=== PATIENT | female | born 1940 | race Caucasian/White ===

== ENCOUNTER → 2017-04-11 | Outpatient (CLI) | payer MEDICARE ==
--- NOTE | 2017-04-11 11:45 | US ---
EXAMINATION TYPE: US thyroid st tissue head/neck DATE OF EXAM: 04/11/2017 COMPARISON: NONE CLINICAL HISTORY: Thryoid Cystic Nodule E04.1. Thyroid nodule, patient on thyroid meds, left lobe rem mariza GLAND SIZE: Right Lobe: 4.7 x 1.6 x 1.6 cm Overall Parenchyma: heterogenous Left Lobe: surgically absent Isthmus Thickness: 0.4 cm NODULES RIGHT: # of nodules measured on right: 3 1. 0.6 X 0.4 x 0.6 cm hypoechoic mixed nodule at the upper pole with well-defined margins. This nod ule is wider than tall and shows no intranodular vascularity. Prior size: no previous 2. 0.8 X 0.8 x 0.5 cm hyperechoic solid nodule at the mid pole with well-defined margins. This nodul e is taller than wide and shows intranodular vascularity. Prior size: no previous 3. 1.0 X 0.8 x 0.9 cm hypoechoic solid nodule at the lower pole with well-defined margins, possible lower pole nodule vs. parathyroid inferior to thyroid. This nodule is wider than tall and shows no in tranodular vascularity. Prior size: no previous LEFT: surgically absent ISTHMUS: # of nodules measured in the isthmus: 0 Bilateral neck scanned, no evidence of lymphadenopathy. IMPRESSION: 1. Surgically absent left lobe with no evidence of recurrence. 2. Heterogeneity of the right thyroid lobe with stable nodules described above. The largest nodule ei ther is located within the inferior right lobe nodule vs. parathyroid nodule. Nuclear medicine parath yroid scan could be performed if clinically indicated.
== END | disposition home or self-care (01) ==
LOC: RADUSWWP 10:46
PROVIDERS: ATTEND Internal Medicine Geriatric Medicine
DX: E04.2 Nontoxic multinodular goiter (principal); Z90.89 Acquired absence of other organs
CPT/HCPCS: 76536

== ENCOUNTER → 2017-10-17 | Outpatient (CLI) | payer MEDICARE ==
--- NOTE | 2017-10-17 11:48 | US ---
EXAMINATION TYPE: US thyroid st tissue head/neck DATE OF EXAM: 10/17/2017 COMPARISON: US April 11, 2017 CLINICAL HISTORY: E04.1 THYROID NODULE. F/U, order states parathyroid as well GLAND SIZE: Right Lobe: 5.0 x 1.4 x 1.7 cm Overall Parenchyma: heterogenous Left Lobe: Surgically absent Isthmus Thickness: 0.4 cm NODULES RIGHT: # of nodules measured on right: 2 1. 0.8 X 0.8 x 0.7 cm isoechoic solid nodule at the mid pole with poorly defined margins; This nod ule is wider than tall and shows intranodular vascularity. Prior size: 0.8 x 0.8 x 0.5 cm 2. 1.2 X 0.9 x 1.2 cm hypoechoic solid nodule at the lower pole with poorly defined margins; This n odule is wider than tall and shows intranodular vascularity. Prior size: 1.0 x 0.8 x 0.9 cm Bilateral neck scanned, no evidence of lymphadenopathy. Nodules on right seen on previous, left thyro id surgically absent, No abnormality visualized within parathyroid areas. Heterogeneous right thyroid redemonstrated with stable 2 small nodules identified on current study. N o suspicious recurrent tissue identified at left thyroid bed. No new nodules are seen. IMPRESSION: As above
== END | disposition home or self-care (01) ==
LOC: RADUSWWP 10:43
PROVIDERS: ATTEND Internal Medicine Geriatric Medicine
DX: E04.2 Nontoxic multinodular goiter (principal)
CPT/HCPCS: 76536

== ENCOUNTER 2017-12-14 19:18 | Emergency (ER) | payer MEDICARE ==
[2017-12-14 21:21] VITALS: BP 160/73; PULSE 77; RESP 16; TEMP 98
--- NOTE | 2017-12-14 21:25 | ED ---
General Adult HPI - General Chief complaint: Fall Stated complaint: fall/ear lac-sent by [facility] Time Seen by Provider: 12/14/17 20:23 Source: patient, RN notes reviewed Mode of arrival: ambulatory Limitations: no limitations - History of Present Illness Initial comments: This is a 77-year-old female who presents to the emergency department with chief complaint of left ear laceration. Patient states earlier today she tripped and fell hitting her left ear on the corner of her dresser. She denies loss of consciousness, nausea or vomiting. She states that she presented to [facility] and they would not suture the ear. Patient denies any other injuries or trauma. Denies recent fevers or chills, chest pain or shortness breath, abdominal pain, nausea or vomiting, dizziness or headache. - Related Data Allergies Allergy/AdvReac Type Severity Reaction Status Date / Time amoxicillin Allergy Rash/Hives Verified 12/14/17 20:16 Sulfa (Sulfonamide Allergy Rash/Hives Verified 12/14/17 20:16 Antibiotics) Review of Systems ROS Statement: Those systems with pertinent positive or pertinent negative responses have been documented in the HPI. ROS Other: All systems not noted in ROS Statement are negative. Past Medical History Past Medical History: Cancer, Diabetes Mellitus, Hyperlipidemia, Hypertension, Thyroid Disorder History of Any Multi-Drug Resistant Organisms: None Reported Past Surgical History: Cholecystectomy, Hysterectomy, Joint Replacement Additional Past Surgical History / Comment(s): bilateral knee replace; vein stripping, bilateral masectomy; viatrectomy Past Psychological History: No Psychological Hx Reported Smoking Status: Never smoker Past Alcohol Use History: None Reported Past Drug Use History: None Reported General Exam - General Exam Comments Initial Comments: General: Awake and alert, well-developed; in no apparent distress. HEENT: Head atraumatic, normocephalic. Pupils are equal, round and reactive to light. Extraocular movements intact. Oropharynx moist without erythema or exudate. There is an approximately 3.0 cm laceration from the tip of the auricle extending down to the anna. Bleeding is controlled. Neck: Supple. Normal ROM. Cardiovascular: Regular rate and rhythm. No murmurs, rubs or gallops. Chest symmetrical. Respiratory: Lungs clear to auscultation bilaterally. No wheezes, rales or rhonchi. Normal respiratory effort with no use of accessory muscles. Musculoskeletal: Normal ROM, no tenderness bilateral upper and lower extremities. Ambulating normally. Skin: [place], warm and dry. Neurological: Alert and oriented x3. CN II-XII grossly intact. Speech is fluent and answers are appropriate. No focal neuro deficits. Psychiatric: Normal mood and affect. No overt signs of depression or anxiety noted. Limitations: no limitations Course Vital Signs 12/14/17 12/14/17 20:10 21:18 Temperature 97.6 F 98 F Pulse Rate 72 77 Respiratory 15 16 Rate Blood Pressure 164/69 160/73 O2 Sat by Pulse 97 98 Oximetry Procedures - Laceration Laceration #1 Consent Obtained: verbal consent Indication: laceration Site: other (left ear ) Size (cm): 3 Description: linear Depth: simple, single layer Anesthetic Used: lidocaine 1% Anesthesia Technique: local infiltration Amount (mls): 8 Pre-repair: wound explored, irrigated extensively, deep structures intact Type of Sutures: nylon (6-0), vicryl (5-0) Size of Sutures: 5-0, 6-0 Number of Sutures: 8 Technique: simple, interrupted Patient Tolerated Procedure: well, no complications Medical Decision Making - Medical Decision Making This is a 77-year-old female who presents to the emergency department with chief complaint of left ear laceration. There is a laceration that extends from the tip of the auricle down to the anna of the left ear. It does appear that a small amount of cartilage is lacerated at the tip of the ear. An absorbable suture was placed here and all others were nylon sutures through the skin. She tolerated well without complication. Patient was updated with her tetanus vaccination. She is to follow up with ABRAHAN Sheldon. Patient's vital signs are stable and she is in no acute distress. She will be discharged home at this time. Patient is in agreement with plan and voices understanding. All questions were answered. Disposition Clinical Impression: Laceration of ear Disposition: HOME SELF-CARE Condition: Good Instructions: Care For Your Absorbable Stitches (ED), Laceration (ED), Care For Your Stitches (ED) Additional Instructions: Please follow up with Dr. Wiley ENT within 1-2 days. Please follow up with primary care provider within 1-2 days. Return to emergency department if symptoms should worsen or any concerns arise. Is patient prescribed a controlled substance at d/c from ED?: No Referrals: Toni Hernandez MD [Primary Care Provider] - 1-2 days Frankie Wiley MD [STAFF PHYSICIAN] - 1-2 days Time of Disposition: 22:09
[2017-12-14] MEDS ORDERED: DIPH,PERTUS(ACELL)TETVAC-LF 0.5 ML VIAL IM ONE (21:46)
== END 2017-12-14 22:34 | disposition home or self-care (01) ==
LOC: EC 19:18
DX: S01.312A Laceration without foreign body of left ear, initial encounter (principal); Z23 Encounter for immunization; Z85.9 Personal history of malignant neoplasm, unspecified; Z96.653 Presence of artificial knee joint, bilateral; Z88.0 Allergy status to penicillin; Z88.2 Allergy status to sulfonamides; W01.198A Fall on same level from slipping, tripping and stumbling with subsequent striking against other object, initial encounter
CPT/HCPCS: 12013; 90471; 90715; 99283

== ENCOUNTER → 2018-01-02 | Outpatient (CLI) | payer MEDICARE ==
--- NOTE | 2018-01-03 14:52 | BD ---
EXAMINATION TYPE: Axial Bone Density DATE OF EXAM: 01/02/2018 COMPARISON: 2001 CLINICAL HISTORY: post menopausal Height: 5'2 1/2 Weight: 198 FRAX RISK QUESTIONS: History of Fracture in Adulthood: y Secondary Osteoporosis: RISK FACTORS HISTORY OF: Active: n Postmenopausal woman: Lost more than 2 inches in height since high school: y Frequent falls: y MEDICATIONS: Thyroid Medications: Which medication: Levothyroxine How Lon years Additional Medications: blood pressure, cholesterol, vitamin d , diabetes 2,arthritis Additional History: mireya mastectomy 2018 EXAM MEASUREMENTS: Bone mineral densitometry was performed using the [employer] System. Bone mineral density as measured about the Lumbar spine is: ----- L1-L4(G/cm2): 1.463 T Score Values are as follows: ----- L2: 1.6 ----- L3: 3.6 ----- L4: 3.2 ----- L1-L4:2.4 Bone mineral density has: Increased 17.3% since study of: 03/13/2002 Bone mineral density about the R hip (g/cm2): 1.158 Bone mineral density about the L hip (g/cm2): 1.054 T Score values are as follows: -----R Neck: 0.9 -----L Neck: 0.1 -----R Total: 0.5 -----L Total: 0.5 Bone mineral density has: Increased 4.8% since study of: 03/13/2002 IMPRESSION: Normal (Values between +1 and -1 indicate normal bone mass). Consider repeating this study in 5 year s or sooner if there is some new clinical indication. NOTE: T-SCORE=SD OF THE YOUNG ADULT MEAN.
== END | disposition home or self-care (01) ==
LOC: RADBDWWP 16:27
PROVIDERS: ATTEND Internal Medicine Hematology & Oncology
DX: C50.111 Malignant neoplasm of central portion of right female breast (principal); Z78.0 Asymptomatic menopausal state; Z88.2 Allergy status to sulfonamides
CPT/HCPCS: 77080

== ENCOUNTER → 2020-02-27 | Outpatient (CLI) | payer MEDICARE ==
--- NOTE | 2020-02-27 18:59 | BD ---
EXAMINATION TYPE: Axial Bone Density DATE OF EXAM: 02/27/2020 COMPARISON: 01.02.2018 CLINICAL HISTORY: 79 YR OLD FEMALE....ICD-10 CODE: C50.111 MALIGNANT NEOPLASM, Z79.890 Height: 62.3 Weight: 180 FRAX RISK QUESTIONS: History of Fracture in Adulthood: YES Secondary Osteoporosis: YES 3. Menopause before 45: YES AT AGE 32 RISK FACTORS HISTORY OF: HX OF RT SHOULDER BREAK AN ADULT Postmenopausal woman: TOTAL HYST AT AGE 32 Take estrogen and/or progesterone medications: NONE IN THE PAST, AND LETROZOLE NOW Lost more than 2 inches in height since high school: YES Frequent falls: YES, UNSTEADY Hyperparathyroidism: NO Adrenal Insufficiency: NO MEDICATIONS: Thyroid Medications: YES, SYNTHROID FOR ABOUT 15 YRS NOW Additional Medications: DIABETIC, BP MEDS, CHOLESTEROL MEDS, VIT D, METFORMIN, MELOXICAM FOR ARTHRITI S, FLUOXITINE, STATIN FOR CHOLESTEROL, Additional History: HX OF RT BREAST CANCER, BILAT MASTECTOMY, EXAM MEASUREMENTS: Bone mineral densitometry was performed using the [employer] System. Bone mineral density as measured about the Lumbar spine is: ----- L1-L4(G/cm2): 1.470 T Score Values are as follows: ----- L1: 1.6 ----- L2: 3.4 ----- L3: 4.2 ----- L4: 3.6 ----- L1-L4: 3.3 Bone mineral density has: Increased 7.3% since study of: 01.02.2018 Bone mineral density about the R hip (g/cm2): 1.052 Bone mineral density about the L hip (g/cm2): 0.988 T Score values are as follows: -----R Neck: 0.9 -----L Neck: -0.5 -----R Total: 0.3 -----L Total: -0.2 Bone mineral density has: Decreased -4.9% since study of: 01.02.2018 FRAX%s: THERE IS A 13.4% CHANCE FOR A MAJOR OSTEOPOROTIC FX AND A 1.6% FOR HIP....PROBABILITY FOR F X IN 10 YRS TIME IMPRESSION: No evidence for osteoporosis or osteopenia. NOTE: T-SCORE=SD OF THE YOUNG ADULT MEAN.
== END | disposition home or self-care (01) ==
LOC: RADBDWWP 08:31
PROVIDERS: ATTEND Internal Medicine Hematology & Oncology
DX: N95.1 Menopausal and female climacteric states (principal); C50.111 Malignant neoplasm of central portion of right female breast; Z79.890 Hormone replacement therapy
CPT/HCPCS: 77080

== ENCOUNTER → 2021-08-12 | Outpatient (CLI) | payer MEDICARE ==
--- NOTE | 2021-08-13 05:29 | MR ---
EXAMINATION TYPE: MR shoulder LT wo con DATE OF EXAM: 08/12/2021 COMPARISON: None HISTORY: Lt shoulder soreness and some shooting pain due to fall 4 or 5 months ago Multiplanar multiecho imaging of the left shoulder without contrast. There is a moderate shoulder joint effusion. There is some increased signal in the biceps tendon cons istent with partial tear. The glenoid jayy appear intact. There is some thickening and increased sig nal in the supraspinatus tendon. There is subacromial and subdeltoid effusion. There is retraction of the supraspinatus tendon. There is large defect in the supraspinatus tendon over the superior aspect of the humeral head. There is no evidence of a fracture. Proximal humerus is intact. IMPRESSION: Large rotator cuff tear with retraction of the supraspinatus tendon. There is partial tear of the sub scapularis tendon. Large shoulder joint effusion and subdeltoid effusion consistent with some synovitis. Mild subacromia l joint space narrowing. There is at least partial tear of the biceps tendon.
== END | disposition home or self-care (01) ==
LOC: RADMRIMAIN 21:32
PROVIDERS: ATTEND Orthopaedic Surgery
DX: M75.102 Unspecified rotator cuff tear or rupture of left shoulder, not specified as traumatic (principal); M25.412 Effusion, left shoulder

== ENCOUNTER 2021-10-07 05:45 | Observation (INO) | payer MEDICARE ==
[2021-10-06 10:59] VITALS: BMI 28.3
--- NOTE | 2021-10-06 12:54 | HP ---
HISTORY AND PHYSICAL DATE OF SURGERY: 10/07/2021 Irene Turcios is a 81-year-old patient seen with progressive left shoulder pain. We discussed options for treatment. She elected to proceed with left shoulder arthroscopy. Consent was obtained. Clearance was provided by Dr. Hernandez. PAST MEDICAL HISTORY: Hypertension, hyperlipidemia, ddx-rrylinq-wmtnunzeq diabetes, hypothyroidism. PAST SURGICAL HISTORY: Bilateral mastectomy, right shoulder surgery, hysterectomy, eye surgery. DAILY MEDICATIONS: Simvastatin, metformin, meloxicam, levothyroxine. ALLERGIES: SULFA. SOCIAL HISTORY: She denies tobacco use. PHYSICAL EVALUATION OF THE LEFT SHOULDER: Flexion is 110 degrees, abduction is 80 degrees. External rotation is 30 degrees with pain and weakness. Tenderness along the anterolateral acromion and rotator cuff insertion. Impingement positive at 80 degrees. Drop-arm sign is positive. Distal neurovascular exam is intact. Radiographs of the left shoulder revealed a type 2 acromion, evidence for acromioclavicular joint osteoarthritis and cystic changes of the tuberosity. MRI left shoulder: Large rotator cuff tendon tear. IMPRESSION: 1. Left shoulder impingement with rotator cuff tear. 2. Left shoulder acromioclavicular joint osteoarthritis. 3. Hypothyroidism. 4. Hyperlipidemia. 5. Lpc-jectrqj-tnkczpvke diabetes. PLAN: Left shoulder arthroscopy with subacromial decompression, arthroscopic rotator cuff repair, Evita procedure and debridement. MMODL / IJN: [id number] /
[2021-10-07] MEDS ORDERED: ONDANSETRON 4 MG/2 ML VIAL IVP ONE (06:08)
[2021-10-07] MEDS ORDERED: LACTATED RINGERS 1,000 ML IV SCH (06:08)
[2021-10-07] MEDS ORDERED: LIDOCAINE 1% (10MG/ML) FOR IV START INTRADERMA PRN (06:08)
[2021-10-07 06:44] LABS: Glucose,Whole Blood 125 mg/dL (75-99)
[2021-10-07 06:45] VITALS: TEMP 98.4
[2021-10-07] MEDS ORDERED: HYDROmorphone 0.5 MG/0.5 ML SYRINGE IVP PRN (07:00)
[2021-10-07] MEDS ORDERED: IV FLUID CONTINUATION 1,000 ML IV ONE (07:34)
[2021-10-07 07:35] VITALS: RESP 16
--- NOTE | 2021-10-07 08:39 | P.CRDCN ---
History of Present Illness Consult date: 10/07/21 History of present illness: History of Present Illness: The patient is a 81-year-old female who was admitted to undergo shoulder surgery. Cardiology consultation was requested because of atrial fibrillation. She has a known history of hypertension, hyperlipidemia and diabetes mellitus. She has no prior history of atrial fibrillation. She was seen at Dr. Hernandez's office preoperatively and she was in sinus mechanism. She does not feel the palpitations. She denies any dizziness or syncope. She has no significant peripheral edema, no PND, orthopnea. In 2018 she had a normal systolic function by echocardiography and her stress test in 2018 showed no evidence of inducible ischemia. Her risk factors are positive for the hypertension number hyperlipidemia and diabetes. She is in atrial fibrillation with rapid ventricular response but denies any change in her symptoms. Her activity is limited but unchanged. Her medication at home include metformin, simvastatin, Benicar 4012-1/2, levothyroxin, aspirin Review of Systems: Respiratory: [No history of asthma, bronchitis or recent cough.] GI: [She had nausea and vomiting today. No history of peptic ulcer disease. No recent GI bleed.] : [No hematuria or dysuria.] Nervous System: [No stroke or seizure.] Physical Examination: She is a 81-year-old female, alert and oriented no apparent distress. Heart rate in the 120s, irregular, blood pressure 120/70 Head: [Normocephalic.] Eyes: [Sclerae nonicteric.] Neck: [Good carotid upstroke, no bruit, no jugular venous distention.] Lungs: [Clear to auscultation.] Heart: [Irregular rate and rhythm, S1-S2, no S3, no rub. Systolic ejection murmur at the base 2/6 Abdomen: [Soft nontender, positive bowel sounds no organomegaly.] Extremities: [No edema, intact distal pulses.] Labs: EKG shows atrial fibrillation with rapid ventricle response and nonspecific ST-T wave changes Impression: 1. Atrial fibrillation appears to be paroxysmal, asymptomatic with rapid ventricular response. Her CHADS2-VASC2 score is 5 2. Shoulder discomfort, scheduled for surgery 3. History of hypertension 4. History of diabetes 5. History of hyperlipidemia Plan: 1. Initiate anticoagulation 2. Add oral beta kenan to slow ventricular response 3. Obtain an echocardiogram with Doppler 4. If needed add IV Cardizem 5. Cancel surgery for now 6. Depending on the results of her testing further recommendations will be made. I discussed those findings and recommendations with the patient and her family. Thank you for this consult we will follow with you. 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" History of Any Multi-Drug Resistant Organisms: None Reported Past Surgical History: Section, Cholecystectomy, Hysterectomy, Joint Replacement Additional Past Surgical History / Comment(s): bilateral knee replacement ; vein stripping, bilateral masectomy; viatrectomy, c section x2 Past Anesthesia/Blood Transfusion Reactions: No Reported Reaction Smoking Status: Former smoker - Past Family History Mother Family Medical History: No Reported History Medications and Allergies Home Medications Medication Instructions Recorded Confirmed Type Acetaminophen Tab [Tylenol Tab] 1,000 mg PO Q6HR PRN 10/06/21 10/07/21 History Aspirin 81 mg PO DAILY 10/06/21 10/07/21 History Cholecalciferol [Vitamin D3 (25 25 mcg PO DAILY 10/06/21 10/07/21 History Mcg = 1000 Iu)] Cranberry Conc/C/Bacill Coag 1 each PO DAILY 10/06/21 10/07/21 History [Cranberry Urinary 250-30-3.5MG] FLUoxetine HCL [PROzac] 20 mg PO DAILY 10/06/21 10/07/21 History Letrozole [Femara] 2.5 mg PO DAILY 10/06/21 10/07/21 History Levothyroxine Sodium [Synthroid] 50 mcg PO DAILY 10/06/21 10/07/21 History Meloxicam [Mobic] 15 mg PO DAILY 10/06/21 10/07/21 History Olmesartan/Hydrochlorothiazide 1 each PO DAILY 10/06/21 10/07/21 History [Olmesartan-Hctz 40-12.5 mg Tab] Simvastatin [Zocor] 10 mg PO HS 10/06/21 10/07/21 History metFORMIN HCL [Glucophage] 500 mg PO BID 10/06/21 10/07/21 History Allergies Allergy/AdvReac Type Severity Reaction Status Date / Time amoxicillin Allergy Rash/Hives Verified 10/07/21 06:22 Sulfa (Sulfonamide Allergy Rash/Hives Verified 10/07/21 06:22 Antibiotics) Physical Exam Vitals: Vital Signs Temp Pulse Resp BP Pulse Ox 10/07/21 08:10 132 H 16 142/91 97 10/07/21 07:26 107 H 16 162/96 0 L 10/07/21 06:33 98.4 F 127 H 20 137/91 99 Intake and Output 10/06/21 10/07/21 10/07/21 22:59 06:59 14:59 Other: Weight 76.5 kg Results Current Medications Generic Name Dose Route Start Last Admin Trade Name Freq PRN Reason Stop Dose Admin Hydromorphone HCl 0.5 mg 10/07/21 07:00 Hydromorphone 0.5 Mg/0.5 Ml Syringe IVP 10/07/21 23:00 Q5M PRN Phase I - Pain Control Cefazolin Sodium 2 gm/ Sodium 50 mls @ 100 mls/hr 10/07/21 05:00 Chloride IVPB 10/08/21 00:01 ONCE PRN pre-op Lactated Ringer's 1,000 mls @ 20 mls/hr 10/07/21 06:08 10/07/21 06:56 Lactated Ringers IV 11/06/21 06:09 0 mls .Q24H MOHIT Administration Lidocaine HCl 0.1 ml 10/07/21 06:08 Lidocaine 1% (10mg/Ml) For Iv Start INTRADERMA 11/06/21 06:09 PER PROTOCOL PRN IV Start Intake and Output 10/06/21 10/07/21 10/07/21 22:59 06:59 14:59 Other: Weight 76.5 kg
[2021-10-07] MEDS ORDERED: METOPROLOL TARTRATE 50 MG TAB PO SCH (09:00)
[2021-10-07] MEDS ORDERED: ATORVASTATIN 40 MG TAB PO SCH (09:00)
[2021-10-07] MEDS ORDERED: APIXABAN 5 MG TAB PO SCH (09:00)
[2021-10-07] MEDS ORDERED: ACETAMINOPHEN TAB 325 MG TAB ONE (10:30)
[2021-10-07] MEDS ORDERED: ACETAMINOPHEN TAB 325 MG TAB PO ONE (10:32)
[2021-10-07 10:42] LABS: ALT 12 U/L (4-34); AST 17 U/L (14-36); African American GFR (CKD) >90 (>60 ml/min/1.73 sqM); Albumin 3.9 g/dL (3.5-5.0); Alkaline Phosphatase 66 U/L (38-126); Anion Gap 8 mmol/L; Blood Urea Nitrogen 12 mg/dL (7-17); Calcium 9.7 mg/dL (8.4-10.2); Carbon Dioxide 30 mmol/L (22-30); Chloride 100 mmol/L (98-107); Glucose 132 mg/dL (74-99); Non-African American GFR(CKD) 89 (>60 ml/min/1.73 sqM); Potassium 3.5 mmol/L (3.5-5.1); Sodium 138 mmol/L (137-145); Total Bilirubin 0.8 mg/dL (0.2-1.3); Total Protein 6.7 g/dL (6.3-8.2)
--- NOTE | 2021-10-07 11:00 | ECHOF ---
Referral Reason:afib MEASUREMENTS -------- HEIGHT: 162.6 cm WEIGHT: 76.2 kg BP: IVSd: 1.0 cm (0.6 - 1.1) LVIDd: 3.6 cm (3.9 - 5.3) LVPWd: 1.1 cm (0.6 - 1.1) IVSs: 1.2 cm LVIDs: 1.7 cm LVPWs: 1.3 cm LAESV Index (A-L): 49.26 ml/m Ao Diam: 3.1 cm (2.0 - 3.7) AV Cusp: 1.5 cm (1.5 - 2.6) LA Diam: 3.0 cm (2.7 - 3.8) MV EXCURSION: 13.536 mm (> 18.000) MV EF SLOPE: 113 mm/s (70 - 150) EPSS: 0.9 cm MV E Yayo: 1.26 m/s MV DecT: 227 ms MV A Yayo: 0.26 m/s MV E/A Ratio: 4.86 AV maxP.77 mmHg AV meanP.43 mmHg RAP: 5.00 mmHg RVSP: 47.82 mmHg FINDINGS -------- Sinus rhythm. This was a technically adequate study. The left ventricular size is normal. Left ventricular wall thickness is normal. Overall left vent ricular systolic function is normal with, an EF between 55 - 60 %. Increased LAP Grade 2 Diastolic Dysfunction. The right ventricle is normal in size. LA is severely dilated >40 ml/m2 The right atrial size is normal. There is mild aortic valve sclerosis. Peak/mean gradient across the Aortic Valve is 8.77mmHg / 5.43 mmHg. Moderate mitral annular calcification present. Igqb-xk-mivmcvjd mitral regurgitation is present. The tricuspid valve appears structurally normal. Hwmh-xw-aljiiixo tricuspid regurgitation present. There is mild pulmonary hypertension. The right ventricular systolic pressure, as measured by Dop pler, is 47.82mmHg. There is no pulmonic regurgitation present. The aortic root size is normal. Normal inferior vena cava with normal inspiratory collapse consistent with estimated right atrial pre ssure of 5 mmHg. There is no pericardial effusion. CONCLUSIONS -------- 1. Left ventricular wall thickness is normal. 2. Overall left ventricular systolic function is normal with, an EF between 55 - 60 %. 3. Increased LAP Grade 2 Diastolic Dysfunction. 4. LA is severely dilated >40 ml/m2 5. There is mild aortic valve sclerosis. 6. Peak/mean gradient across the Aortic Valve is 8.77mmHg / 5.43mmHg. 7. Ayst-li-grhjffdy tricuspid regurgitation present. 8. There is mild pulmonary hypertension. 9. There is no pericardial effusion. SQL SSIS DEVELOPER: Margarita Salazar RDCS
--- NOTE | 2021-10-07 11:17 | P.HPIM ---
History of Present Illness H&P Date: 10/07/21 HISTORY OF PRESENT ILLNESS This is a 81-year-old female patient of Dr. Hernandez with past medical history of diabetes mellitus type 2, hypothyroidism, hypertension, hyperlipidemia, generalized osteoarthritisl history of breast cancer status post double mastectomy. She denies any cardiac history, no history of myocardial infarction. Patient was brought in the hospital on the care of Dr. Ballesteros for left shoulder surgery and was found to be in atrial fibrillation with RVR. She denies having any history of atrial fibrillation, denies chest pain, palpitations, dizziness or lightheadedness. She states she does not feel the atrial fibrillation. EKG is atrial fibrillation with RVR nonspecific ST-T wave changes. Echocardiogram reveals EF of 55-60% with mild aortic valve sclerosis, [id number] tricuspid regurgitation, mild pulmonary hypertension. Blood work revealed normal electrolytes, creatinine 0.57. Liver function tests were normal. Patient is seen in the postop area, she has converted to sinus rhythm. Patient has been started on eliquis and Lopressor 50 g twice daily by cardiology. REVIEW OF SYSTEMS Constitutional: No fever, no chills, no night sweats. No weight change. No weakness, fatigue or lethargy. No daytime sleepiness. EENT: No headache. No blurred vision or double vision, no loss of vision. No loss of Hearing, no ringing in the ears, no dizziness. No nasal drainage or congestion. No epistaxis. No sore throat. Lungs: No shortness of breath, cough, no sputum production. No wheezing. Cardiovascular: No chest pain, no lower extremity edema. No palpitations. No paroxysmal nocturnal dyspnea. No orthopnea. No lightheadedness or dizziness. No syncopal episodes. Abdominal: No abdominal pain. No nausea, vomiting. No diarrhea. No constipation. No bloody or tarry stools. No loss of appetite. Genitourinary: No dysuria, increased frequency, urgency. No urinary retention. Musculoskeletal: No myalgias. No muscle weakness, no gait dysfunction, no frequent falls. No back pain. No neck pain. Integumentary: No wounds, no lesions. No rash or pruritus. No unusual bruising. No change in hair or nails. Neurologic: No aphasia. No facial droop. No change in mentation. No head injury. No headache. No paralysis. No paresthesia. Psychiatric: No depression. No anxiety. No mood swings. Endocrine: No abnormal blood sugars. No weight change. No excessive sweating or thirst. No cold intolerance. SOCIAL HISTORY She is a nonsmoker, rare alcohol use, she does drink diet Pepsi regularly. She does not require CPAP, nebulizer, oxygen, walker or cane.. FAMILY HISTORY Mother at age 42 from TB. Father at age 68 from endocarditis from tooth infection. Patient is one sister at age 80 with no major medical problems. Patient does not have any brothers. She has one son and one daughter with no major medical problems. PHYSICAL EXAMINATION Gen: This is a 81-year-old female. Is resting on the stretcher and appears to be in no acute distress. Patient's significant other is at bedside. HEENT: Head is atraumatic, normocephalic. Pupils equal, round. Sclerae is anicteric. NECK: Supple. No JVD. No lymphadenopathy. No thyromegaly. LUNGS: Clear to auscultation. No wheezes or rhonchi. No intercostal retractions. HEART: Regular rate and rhythm. Systolic ejection murmur. ABDOMEN: Soft. Bowel sounds are present. No masses. No tenderness. EXTREMITIES: No pedal edema. No calf tenderness. NEUROLOGICAL: Patient is awake, alert and oriented x3. Cranial nerves 2 through 12 are grossly intact. ASSESSMENT AND PLAN 1. A. fib with RVR, paroxysmal atrial fibrillation. Patient's been started on metoprolol 50 mg twice daily and eliquis 5 mg twice daily by cardiology. Patient has converted to sinus rhythm. 2. Left shoulder impingement/osteoarthritis. Surgery has been canceled and patient will follow-up with Dr. Ballesteros. 3. Diabetes mellitus type 2. Patient resumed on metformin 500 mg twice daily, consistent carb diet. 4. Hypothyroidism. Continue levothyroxine 50 g daily. Obtain TSH and free T4. 5. Hypertension. Patient's been started on metoprolol. Hold. 6. Hyperlipidemia. Continue Lipitor 40 mild grams daily. 7. Generalized osteoarthritis, stable. 8. History of breast cancer status post bilateral mastectomy. Continue Femara 2.5 mg daily. 9. Depression. Continue Prozac 20 mg daily. 10. GI prophylaxis. Protonix. 11. DVT prophylaxis. Eliquis. Patient will be admitted to the hospital for a minimum of 2 night stay. DISCHARGE PLAN Home on Tuesday. Impression and plan of care have been directed as dictated by the signing physician. Helga Francois nurse practitioner acting as scribe for signing physician. 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" History of Any Multi-Drug Resistant Organisms: None Reported Past Surgical History: Section, Cholecystectomy, Hysterectomy, Joint Replacement Additional Past Surgical History / Comment(s): bilateral knee replacement ; vein stripping, bilateral masectomy; viatrectomy, c section x2 Past Anesthesia/Blood Transfusion Reactions: No Reported Reaction Smoking Status: Former smoker - Past Family History Mother Family Medical History: No Reported History Medications and Allergies Home Medications Medication Instructions Recorded Confirmed Type Acetaminophen Tab [Tylenol Tab] 1,000 mg PO Q6HR PRN 10/06/21 10/07/21 History Aspirin 81 mg PO DAILY 10/06/21 10/07/21 History Cholecalciferol [Vitamin D3 (25 25 mcg PO DAILY 10/06/21 10/07/21 History Mcg = 1000 Iu)] Cranberry Conc/C/Bacill Coag 1 each PO DAILY 10/06/21 10/07/21 History [Cranberry Urinary 250-30-3.5MG] FLUoxetine HCL [PROzac] 20 mg PO DAILY 10/06/21 10/07/21 History Letrozole [Femara] 2.5 mg PO DAILY 10/06/21 10/07/21 History Levothyroxine Sodium [Synthroid] 50 mcg PO DAILY 10/06/21 10/07/21 History Meloxicam [Mobic] 15 mg PO DAILY 10/06/21 10/07/21 History Olmesartan/Hydrochlorothiazide 1 each PO DAILY 10/06/21 10/07/21 History [Olmesartan-Hctz 40-12.5 mg Tab] Simvastatin [Zocor] 10 mg PO HS 10/06/21 10/07/21 History metFORMIN HCL [Glucophage] 500 mg PO BID 10/06/21 10/07/21 History Apixaban [Eliquis] 5 mg PO BID 30 Days #60 tab 10/07/21 Rx Allergies Allergy/AdvReac Type Severity Reaction Status Date / Time amoxicillin Allergy Rash/Hives Verified 10/07/21 06:22 Sulfa (Sulfonamide Allergy Rash/Hives Verified 10/07/21 06:22 Antibiotics) Physical Exam Vitals: Vital Signs Temp Pulse Resp BP Pulse Ox 10/07/21 08:10 132 H 16 142/91 97 10/07/21 07:26 107 H 16 162/96 0 L 10/07/21 06:33 98.4 F 127 H 20 137/91 99 Intake and Output 10/06/21 10/07/21 10/07/21 22:59 06:59 14:59 Other: Weight 76.5 kg Results CBC & Chem 7: 10/07/21 09:53 Labs: Abnormal Lab Results - Last 24 Hours (Table) 10/07/21 Range/Units 06:43 POC Glucose (mg/dL) 125 H (75-99) mg/dL Thrombosis Risk Factor Assmnt - Choose All That Apply Each Factor Represents 1 point: Minor surgery planned, Obesity (BMI >25) Each Risk Factor Represents 2 Points: Malignancy Each Risk Factor Represents 3 Points: Age 75 years or older Thrombosis Risk Factor Assessment Total Risk Factor Score: 7 Thrombosis Risk Factor Assessment Level: High Risk
[2021-10-07 11:27] VITALS: BP 91/56; PULSE 61
[2021-10-07 12:05] LABS: Glucose,Whole Blood 152 mg/dL (75-99)
[2021-10-07 20:27] LABS: Chol/HDL Ratio 1.96 Ratio; LDL Cholesterol,Calculated 55.6 mg/dL (0.0-131.0)
[2021-10-07] MEDS ORDERED: metFORMIN 500 MG TAB PO SCH (21:00)
[2021-10-07] MEDS ORDERED: NON FORMULARY DRUG (Simvastatin 10 MG Tab) PO SCH (21:00)
[2021-10-08] MEDS ORDERED: FLUoxetine HCL 20 MG CAP PO SCH (09:00)
[2021-10-08] MEDS ORDERED: LEVOTHYROXINE 50 MCG TAB PO SCH (09:00)
[2021-10-08] MEDS ORDERED: LETROZOLE 2.5 MG TAB PO SCH (09:00)
== END 2021-10-07 15:54 | disposition home or self-care (01) ==
LOC: OR 05:45 → INTOOBSV 08:19 → 4SSUR 08:19 → UNDODISIN 15:54
PROVIDERS: ADMIT Orthopaedic Surgery; ATTEND Orthopaedic Surgery
DX: M75.42 Impingement syndrome of left shoulder (principal); I48.0 Paroxysmal atrial fibrillation; Z53.09 Procedure and treatment not carried out because of other contraindication; M75.102 Unspecified rotator cuff tear or rupture of left shoulder, not specified as traumatic; M19.012 Primary osteoarthritis, left shoulder; I10 Essential (primary) hypertension; E03.9 Hypothyroidism, unspecified; E78.5 Hyperlipidemia, unspecified; E11.9 Type 2 diabetes mellitus without complications; I27.20 Pulmonary hypertension, unspecified; I08.2 Rheumatic disorders of both aortic and tricuspid valves; F32.A Depression, unspecified; E66.9 Obesity, unspecified; Z68.28 Body mass index [BMI] 28.0-28.9, adult; Z71.9 Counseling, unspecified; Z88.2 Allergy status to sulfonamides; Z88.0 Allergy status to penicillin; Z90.49 Acquired absence of other specified parts of digestive tract; Z90.710 Acquired absence of both cervix and uterus; Z90.13 Acquired absence of bilateral breasts and nipples; Z79.899 Other long term (current) drug therapy; Z79.82 Long term (current) use of aspirin; Z79.811 Long term (current) use of aromatase inhibitors; Z79.01 Long term (current) use of anticoagulants; Z79.890 Hormone replacement therapy; Z79.1 Long term (current) use of non-steroidal anti-inflammatories (NSAID); Z79.84 Long term (current) use of oral hypoglycemic drugs; Z87.891 Personal history of nicotine dependence; Z96.653 Presence of artificial knee joint, bilateral; Z85.828 Personal history of other malignant neoplasm of skin; Z85.3 Personal history of malignant neoplasm of breast; Z83.1 Family history of other infectious and parasitic diseases
CPT/HCPCS: 93306; 80061; 80053; 84443; G0378

== ENCOUNTER 2021-10-07 08:40 | Inpatient (IN) | payer MEDICARE ==
[2021-10-07 12:38] VITALS: BP 109/55; PULSE 61; RESP 18; TEMP 98.4
== END 2021-10-07 15:54 | disposition home or self-care (01) | DRG 951 ==
LOC: 3SCARD 12:00
PROVIDERS: ADMIT Internal Medicine Geriatric Medicine; ATTEND Internal Medicine Geriatric Medicine
DX: Z53.9 Procedure and treatment not carried out, unspecified reason (principal); I48.91 Unspecified atrial fibrillation

== ENCOUNTER → 2022-03-01 | Outpatient (CLI) | payer MEDICARE ==
--- NOTE | 2022-03-01 11:30 | BD ---
EXAMINATION TYPE: Axial Bone Density DATE OF EXAM: 03/01/2022 COMPARISON: 12.24.2017 CLINICAL HISTORY: 81 years year old Female. ICD-10 CODE: Z79.890 post menopausal with hrt Height: 62 Weight: 172 FRAX RISK QUESTIONS: Secondary Osteoporosis: 3. Menopause before 45: YES RISK FACTORS HISTORY OF: Active: YES Postmenopausal woman: YES TOTAL HYSTERECTOMY AT 44 Lost more than 2 inches in height since high school: YES Frequent falls: YES MEDICATIONS: Thyroid Medications: Which medication: Levothyroxine How Lon YEARS Additional Medications: BP MEDS, CHOLESTEROL MED, VITAMIN D, DIABETIC MED Additional History: BREAST CA WITH SHREYA MASTECTOMY EXAM MEASUREMENTS: Bone mineral densitometry was performed using the [employer] System. Bone mineral density as measured about the Lumbar spine is: ----- L1-L4(G/cm2): 1.342 T Score Values are as follows: ----- L1: 0.6 ----- L2: 0.1 ----- L3: 1.6 ----- L4: 2.6 ----- L1-L4: 1.3 Bone mineral density has: Decreased -9.6% since study of: 12.24.2017 Bone mineral density about the R hip (g/cm2): 1.015 Bone mineral density about the L hip (g/cm2): 0.957 T Score values are as follows: -----R Neck: -0.1 -----L Neck: -0.5 -----R Total: 0.1 -----L Total: -0.4 Bone mineral density has: Decreased -8.0% since study of: 12.24.2017 FRAX%s: The graph provided illustrates a 9.8% chance for a major osteoporotic fx and a 1.5% chance fo r the hips probability for fx in 10 years time. IMPRESSION: Normal (Values between +1 and -1 indicate normal bone mass). Consider repeating this study in 5 year s or sooner if there is some new clinical indication. NOTE: T-SCORE=SD OF THE YOUNG ADULT MEAN.
== END | disposition home or self-care (01) ==
LOC: RADBDWWP 08:48
PROVIDERS: ATTEND Internal Medicine Hematology & Oncology
DX: Z12.31 Encounter for screening mammogram for malignant neoplasm of breast (principal); C50.111 Malignant neoplasm of central portion of right female breast; Z79.890 Hormone replacement therapy
CPT/HCPCS: 77080

== ENCOUNTER 2023-09-09 09:50 | Day surgery (SDC) | payer MEDICARE ==
[2023-09-06 15:29] VITALS: BMI 33.8
[~2023-09-09 09:50] MED LIST: LACTATED RINGERS 1,000 ML IV SCH; LIDOCAINE 1% (10MG/ML) FOR IV START INTRADERMA PRN
[2023-09-09 10:54] VITALS: TEMP 98.2
[2023-09-09 10:59] LABS: Glucose,Whole Blood 135 mg/dL (70-110)
[2023-09-09] MEDS ORDERED: PROPOFOL 10 MG/ML 20 ML VIAL IV ONE (11:44)
--- NOTE | 2023-09-09 11:59 | P.PCN ---
Date of Procedure: 09/09/23 Procedure(s) Performed: BRIEF HISTORY: Patient is a 83-year-old pleasant white female scheduled for an elective colonoscopy as a part of screening for colon cancer/positive cologuard PROCEDURE PERFORMED: Colonoscopy with snare polypectomy. PREOPERATIVE DIAGNOSIS: Screening for colon cancer/positive cologuard. IV sedation per Anesthesia. PROCEDURE: After informed consent was obtained, the patient, was brought into the endoscopy unit. IV sedation was administered by Anesthesia under continuous monitoring. Digital rectal examination was normal. Initially the Olympus CF-160 flexible video colonoscope was then inserted in the rectum, gradually advanced into the cecum without any difficulty. Careful examination was performed as the scope was gradually being withdrawn. Ileocecal valve and the appendiceal orifice were visualized and appeared normal. Prep was excellent. Mucosa of the cecum, appeared normal. In the ascending colon there was a 5 mm polyp that was removed by cold snare polypectomy. In the hepatic flexure there was a 4 mm and 6 mm polyp removed by cold snare polypectomy. Rest of the appeared normal. In the sigmoid: There was a 6 cm polyp removed by cold snare polypectomy. Scattered sigmoid diverticula seen. Rest of the ascending colon, transverse colon, descending colon, sigmoid colon, and rectum appeared normal. Retroflexion was performed in the rectum and no lesions were seen. The patient tolerated the procedure well. IMPRESSION: 5 mm ascending colon polyp status post cold snare polypectomy 4 mm and 6 mm hepatic flexure polyp status post cold snare. Polypectomy 6 mm; sigmoid polyp status post cold snare polypectomy Scattered sigmoid diverticulosis RECOMMENDATIONS: Findings of this examination were discussed with the patient is a family.. As well as a family. She was advised to follow with the biopsy results. If the biopsies reveal adenoma she can have a repeat colonoscopy in 3 years based on her overall medical condition.
[2023-09-09 12:14] VITALS: RESP 18
[2023-09-09 12:40] VITALS: BP 132/84; PULSE 90
== END 2023-09-09 12:47 | disposition home or self-care (01) ==
LOC: ORWHC2ENDO 09:50
PROVIDERS: ATTEND Internal Medicine Gastroenterology
DX: D12.2 Benign neoplasm of ascending colon (principal); D12.3 Benign neoplasm of transverse colon; D12.5 Benign neoplasm of sigmoid colon; K57.30 Diverticulosis of large intestine without perforation or abscess without bleeding; I10 Essential (primary) hypertension; E11.69 Type 2 diabetes mellitus with other specified complication; E78.5 Hyperlipidemia, unspecified; F41.9 Anxiety disorder, unspecified; E03.9 Hypothyroidism, unspecified; Z79.84 Long term (current) use of oral hypoglycemic drugs; Z79.01 Long term (current) use of anticoagulants; Z79.899 Other long term (current) drug therapy; Z79.1 Long term (current) use of non-steroidal anti-inflammatories (NSAID); Z79.890 Hormone replacement therapy; Z88.0 Allergy status to penicillin; Z88.2 Allergy status to sulfonamides; Z80.3 Family history of malignant neoplasm of breast
CPT/HCPCS: 88305; 45385; J2704

== ENCOUNTER → 2023-11-09 | Outpatient (CLI) | payer MEDICARE ==
--- NOTE | 2023-11-09 21:14 | XR ---
EXAMINATION TYPE: XR Hip Complete LT DATE OF EXAM: 11/09/2023 COMPARISON: None HISTORY: Pain x2 weeks TECHNIQUE: 2 view left hip FINDINGS: Femoral head articulates with the acetabulum. Joint space is mildly diffusely narrowed. No acute fracture or dislocation is evident. Vascular calcification is present. The additional osseous structures appear intact. No suspicious oss eous abnormality radiographically apparent. Follow-up with bone scan, MRI, or PET scan can be perform ed as clinically indicated. IMPRESSION: 1. No acute osseous abnormality radiographically apparent
== END | disposition home or self-care (01) ==
LOC: RADXRMAIN 15:25
PROVIDERS: ATTEND Internal Medicine Hematology & Oncology
DX: C50.111 Malignant neoplasm of central portion of right female breast (principal); R59.0 Localized enlarged lymph nodes; Z71.3 Dietary counseling and surveillance; M25.552 Pain in left hip
CPT/HCPCS: 73502

== ENCOUNTER 2024-02-08 15:27 | Emergency (ER) | payer MEDICARE ==
[2024-02-08 15:34] VITALS: RESP 18; TEMP 98.4
--- NOTE | 2024-02-08 16:19 | ED ---
General Adult HPI - General Chief complaint: Fall Stated complaint: fall Time Seen by Provider: 02/08/24 15:57 Source: patient - History of Present Illness Initial comments: 83-year-old female presents emergency department after a trip and fall. Patient states that she tripped on a display and [employer] and fell landing face first on the ground. Patient has a swollen lip which is bleeding. Patient denies any neck pain. No loss of consciousness. She does take Eliquis for history of A-fib. She states that the staff at the store called EMS even though the patient was not eager to come to the hospital. She denies any headache or visual changes. No neck pain. No numbness, tingling or weakness in her extremities. No epistaxis. Denies any dental pain. No other alleviating, p recipitating modifying factors - Related Data Home Medications Medication Instructions Recorded Confirmed Acetaminophen Tab [Tylenol] 1,000 mg PO Q6HR PRN 10/06/21 09/09/23 Cholecalciferol [Vitamin D3 (25 25 mcg PO DAILY 10/06/21 09/09/23 Mcg = 1000 Iu)] Cranberry Conc/C/Bacill Coag 1 tab PO DAILY 10/06/21 09/09/23 [Cranberry Urinary 250-30-3.5MG] FLUoxetine HCL [PROzac] 20 mg PO QAM 10/06/21 09/09/23 Letrozole [Femara] 2.5 mg PO DAILY 10/06/21 09/09/23 Levothyroxine Sodium [Synthroid] 50 mcg PO QAM 10/06/21 09/09/23 Meloxicam [Mobic] 15 mg PO DAILY 10/06/21 09/09/23 metFORMIN HCL [Glucophage] 500 mg PO BID 10/06/21 09/09/23 Olmesartan/Hydrochlorothiazide 1 tab PO DAILY 10/07/21 09/09/23 [Olmesartan-Hctz 40-12.5 mg Tab] Vitamin E (Unknown Dose) 1 tab PO DAILY 09/06/23 09/09/23 Previous Rx's Medication Instructions Recorded Apixaban [Eliquis] 5 mg PO BID 30 Days #60 tab 10/07/21 Atorvastatin [Lipitor] 40 mg PO DAILY #30 tab 10/07/21 Metoprolol Tartrate [Lopressor] 50 mg PO BID 30 Days #60 tab 10/07/21 Cephalexin [Keflex] 500 mg PO BID 1 Days #10 cap 02/08/24 Allergies Allergy/AdvReac Type Severity Reaction Status Date / Time amoxicillin Allergy Rash/Hives Verified 02/08/24 15:34 Sulfa (Sulfonamide Allergy Rash/Hives Verified 02/08/24 15:34 Antibiotics) Review of Systems ROS Statement: Those systems with pertinent positive or pertinent negative responses have been documented in the HPI. ROS Other: All systems not noted in ROS Statement are negative. 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 Varicose veins. History of Any Multi-Drug Resistant Organisms: None Reported Past Surgical History: Breast Surgery, Section, Hysterectomy, Joint Replacement Additional Past Surgical History / Comment(s): Bilateral knee replacement, vein stripping, bilateral masectomy, viatrectomy, section X2. Past Anesthesia/Blood Transfusion Reactions: No Reported Reaction Past Psychological History: Anxiety Smoking Status: Never smoker Past Alcohol Use History: None Reported Past Drug Use History: None Reported - Past Family History Mother Family Medical History: No Reported History General Exam General appearance: alert, in no apparent distress Head exam: Present: other (Patient has a right upper lip lack measuring 1.5 cm x 0.5 cm. No active bleeding. Laceration is through and through. Underlying tooth is not loose) Eye exam: Present: normal appearance, PERRL, EOMI. Absent: scleral icterus, conjunctival injection, periorbital swelling ENT exam: Present: normal exam, mucous membranes moist, other (No epistaxis) Neck exam: Present: normal inspection. Absent: tenderness, meningismus, lymphadenopathy Respiratory exam: Present: normal lung sounds bilaterally. Absent: respiratory distress, wheezes, rales, rhonchi, stridor Cardiovascular Exam: Present: regular rate, normal rhythm, normal heart sounds. Absent: systolic murmur, diastolic murmur, rubs, gallop, clicks GI/Abdominal exam: Present: soft, normal bowel sounds. Absent: distended, tenderness, guarding, rebound, rigid Course Vital Signs 02/08/24 02/08/24 15:31 17:52 Temperature 98.4 F Pulse Rate 86 96 Respiratory 18 18 Rate Blood Pressure 170/111 162/100 O2 Sat by Pulse 96 97 Oximetry Procedures - Laceration Laceration #1 Consent Obtained: verbal consent Indication: laceration Site: lip Size (cm): 2 (cm) Description: linear Depth: simple, single layer Anesthetic Used: lidocaine 1% Anesthesia Technique: local infiltration Amount (mls): 5 Pre-repair: wound explored, irrigated extensively Type of Sutures: vicryl Size of Sutures: 6-0 Number of Sutures: 2 Technique: simple, interrupted Patient Tolerated Procedure: well, no complications Medical Decision Making - Medical Decision Making Was pt. sent in by a medical professional or institution (, PA, BUSINESS RESILIENCY MANAGER, urgent care, hospital, or skilled nursing...) When possible be specific @ -No Did you speak to anyone other than the patient for history (EMS, parent, family, police, friend...)? What history was obtained from this source @ -Poke with EMS for history Did you review nursing and triage notes (agree or disagree)? Why? @ -I reviewed and agree with nursing and triage notes Were old charts reviewed (outside hosp., previous admission, EMS record, old EKG, old radiological studies, urgent care reports/EKG's, skilled nursing records)? Report findings @ -No old charts were reviewed Differential Diagnosis (chest pain, altered mental status, abdominal pain women, abdominal pain men, vaginal bleeding, weakness, fever, dyspnea, syncope, headache, dizziness, GI bleed, back pain, seizure, CVA, palpatations, mental health, musculoskeletal)? @ -Laceration, abrasion, dental avulsion, neck pain, facial trauma EKG interpreted by me (3pts min.). @ -Yes and demonstrates A-fib with a rate of 97. QRS 102. QTc of 430. No acute ST segment elevations or depressions X-rays interpreted by me (1pt min.). @ -None done CT interpreted by me (1pt min.). @ -Yes and demonstrates no acute process U/S interpreted by me (1pt. min.). @ -None done What testing was considered but not performed or refused? (CT, X-rays, U/S, labs)? Why? @ -None What meds were considered but not given or refused? Why? @ -None Did you discuss the management of the patient with other professionals (professionals i.e. , PA, BUSINESS RESILIENCY MANAGER, lab, RT, psych nurse, social service worker, machine maintenance supervisor, teacher, chief executive officer, pillowcase cutter)? Give summary @ -No Was smoking cessation discussed for >3mins.? @ -No Was critical care preformed (if so, how long)? @ -No Were there social determinants of health that impacted care today? How? (Homelessness, low income, unemployed, alcoholism, drug addiction, transportation, low edu. Level, literacy, decrease access to med. care, group home, rehab)? @ -No Was there de-escalation of care discussed even if they declined (Discuss DNR or withdrawal of care, Hospice)? DNR status @ -No What co-morbidities impacted this encounter? (DM, HTN, Smoking, COPD, CAD, Cancer, CVA, ARF, Chemo, Hep., AIDS, mental health diagnosis, sleep apnea, morbid obesity)? @ -None Was patient admitted / discharged? Hospital course, mention meds given and route, prescriptions, significant lab abnormalities, going to OR and other pertinent info. @ -Upon arrival patient seen and evaluated in [address]. Thorough history and physical exam was performed. Patient is eager to leave. I did request a CT of her brain and cervical spine. Patient was agreeable to this. Imaging demonstrates no acute fractures. Patient does have a through and through defect of her right upper lip. Recommended suture repair. Patient was agreeable to this. I did place 2 absorbable sutures to the area. She is informed that the sutures will dissolve on their own. Instructed to follow-up with her primary care doctor for wound reevaluation and return for any new or worsening symptoms. Patient agreeable to plan was discharged in stable condition Undiagnosed new problem with uncertain prognosis? @ -No Drug Therapy requiring intensive monitoring for toxicity (Heparin, Nitro, Insulin, Cardizem)? @ -No Were any procedures done? @ -Lip laceration repair with sutures Diagnosis/symptom? @ -Acute fall, acute blunt facial trauma, lip laceration Acute, or Chronic, or Acute on Chronic? @ -Acute Uncomplicated (without systemic symptoms) or Complicated (systemic symptoms)? @ -Complicated Side effects of treatment? @ -No Exacerbation, Progression, or Severe Exacerbation? @ -No Poses a threat to life or bodily function? How? (Chest pain, [place], [place], pneumonia, PE, COPD, DKA, ARF, appy, cholecystitis, CVA, Diverticulitis, Homicidal, Suicidal, threat to staff... and all critical care pts) @ -No Disposition Clinical Impression: Fall, Facial trauma, Lip laceration Disposition: HOME SELF-CARE Condition: Stable Instructions (If sedation given, give patient instructions): Facial Laceration (ED) Additional Instructions: Please follow-up with your primary care doctor in 2 to 4 days and return for any new or worsening symptoms Prescriptions: Cephalexin [Keflex] 500 mg PO BID 1 Days #10 cap Is patient prescribed a controlled substance at d/c from ED?: No Referrals: Toni Hernandez MD [Primary Care Provider] - 1-2 days Time of Disposition: 17:15
--- NOTE | 2024-02-08 17:03 | CT ---
EXAMINATION TYPE: CT brain herber wo con DATE OF EXAM: 02/08/2024 COMPARISON: None HISTORY: 83-year-old female pain after fall, abrasion to upper lip and nose. CT DLP: 1103.8 mGycm Automated exposure control for dose reduction was used. Technique: Examination of the head was done in axial plane without intravenous contrast. Coronal and sagittal reconstructions performed. CT of the cervical spine was obtained in axial plane without intravenous injection of contrast mater ial. Coronal and sagittal reformatted images were obtained from the axial views for evaluation of f ractures, spinal alignment and canal. FINDINGS: Head: There is no evidence of acute intracranial hemorrhage, acute ischemic changes, mass, mass-effect, or extra-axial fluid collection. There is no effacement of cerebral sulci or basal subarachnoid cister ns. There is no hydrocephalus. There is no midline shift. Echeverria-white matter distinction is preserv ed. Partially into sella. Benign basal ganglionic calcifications. No calvarial fracture. Mastoid air cells are pneumatized. Cervical spine: No craniocervical junction antibody, predental space widening, or prevertebral soft tissue swelling. Moderate degenerative change at the C1 dens articulation. The patient's head is tilted toward the lef t. Trace grade 1 anterolisthesis C7-T1. Moderate multilevel spondylotic change. Advanced facet and uncovertebral joint arthropathy lower cerv ical spine. Disc osteophyte complex may contribute to moderate spinal canal stenosis at C5-C6. No acute fracture seen Visualized upper lungs shows septal lines and some groundglass change. Sagittal and coronal reformatted images confirm above findings. COMBINED IMPRESSION: 1. No acute intracranial abnormality seen. 2. No acute fracture of the cervical spine. Moderate spondylotic change. The patient's head is tilted towards the left. Trace grade 1 anterolisthesis C7-T1 on a degenerative basis. 3. Facial bones reported separately.
--- NOTE | 2024-02-08 17:06 | CT ---
EXAMINATION TYPE: CT facial bones wo con DATE OF EXAM: 02/08/2024 COMPARISON: None HISTORY: 83-year-old female pain after fall TECHNIQUE: CT of the facial bones without IV contrast. Coronal and sagittal reconstructions performed . CT DLP: 1103.8 mGycm Automated exposure control for dose reduction was used. FINDINGS: Moderate degenerative change right TMJ. Mandible, pterygoid plates, and zygomatic arches are intact. Only trace mucosal thickening in the ethmoid air cells and floor of the right maxillary sinus. No air -fluid level in the paranasal sinuses. There are rightward angulated bilateral nasal bone fractures. Otherwise, no acute facial bone fractu re seen. Orbits and globes appear intact. IMPRESSION: 1. RIGHTWARD ANGULATED BILATERAL NASAL BONE FRACTURES. 2. 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 3. MODERATE RIGHT TMJ OA.
[2024-02-08] MEDS: LIDOCAINE 1% INJ 10MG/ML (20 ML MDV) SQ ONE (17:51)
[2024-02-08 17:55] VITALS: BP 162/100; PULSE 96
== END 2024-02-08 17:54 | disposition home or self-care (01) ==
LOC: EC 15:27
DX: S02.2XXA Fracture of nasal bones, initial encounter for closed fracture (principal); S01.511A Laceration without foreign body of lip, initial encounter; Z88.2 Allergy status to sulfonamides; Z88.0 Allergy status to penicillin; W01.0XXA Fall on same level from slipping, tripping and stumbling without subsequent striking against object, initial encounter
CPT/HCPCS: 72125; 70486; 70450; 99284; 12011; J2001

== ENCOUNTER → 2024-03-12 | Outpatient (CLI) | payer MEDICARE ==
--- NOTE | 2024-03-12 16:33 | CT ---
EXAMINATION TYPE: CT brain wo con DATE OF EXAM: 03/12/2024 COMPARISON: CT brain and C-spine dated 02/08/2024 HISTORY: Fall on thinners twice on Tuesday. No LOC. Bruising around right eye. CT DLP: 1202.1 mGycm Automated exposure control for dose reduction was used. Findings: The ventricles, basal cisterns and sulci over the convexities are moderately enlarged. There is mild- to-moderate decreased density in the periventricular white matter consistent with chronic ischemic wh ite matter demyelination. There is no mass effect or shift of the midline structures. There is no acute intra or extra-axial hemorrhage. The posterior fossa including the brainstem, fourth ventricle and cerebellar pontine angles appear no rmal. Intraorbital contents appear normal and symmetric. Visualized paranasal sinuses and mastoid air cells are well aerated. The calvarium is intact. There is mild soft tissue swelling over the right maxilla. IMPRESSION: 1. No acute bleed or mass effect. 2. Senescent atrophy and ischemic white matter changes as described above.
--- NOTE | 2024-03-13 07:25 | XR ---
EXAMINATION TYPE: XR knee limited RT DATE OF EXAM: 03/12/2024 CLINICAL HISTORY: pain TECHNIQUE: 2 views of the right knee are obtained. COMPARISON: None. FINDINGS: There is no acute fracture/dislocation. Total Right knee arthroplasty with femoral and tibial components appearing well seated. Prepatellar soft ti ssue edema noted. IMPRESSION: There is no acute fracture or dislocation.ICD 10 NO FRACTURE, INITIAL EVALUATION
== END | disposition home or self-care (01) ==
LOC: RADCTMAIN 15:59
PROVIDERS: ATTEND Internal Medicine Geriatric Medicine
DX: S09.93XA Unspecified injury of face, initial encounter (principal); S80.911A Unspecified superficial injury of right knee, initial encounter; I67.82 Cerebral ischemia
CPT/HCPCS: 70450

== ENCOUNTER → 2024-05-03 | Outpatient (CLI) | payer MEDICARE ==
--- NOTE | 2024-05-14 21:39 | BD ---
EXAMINATION TYPE: Axial Bone Density DATE OF EXAM: 05/03/2024 CLINICAL HISTORY: 83 years old Female. ICD-10 CODE: M81.0 OSTEOPOROSIS Height: 63 Weight: 194.2 FRAX RISK QUESTIONS: Alcohol (3 or more units per day): no Family History (Parent hip fracture): no Glucocorticoids (More than 3mos): no (Ex: prednisone, prednisolone, methylprednisolone, dexamethasone, and hydrocortisone). History of Fracture in Adulthood: no Secondary Osteoporosis: 1. Type 1 Diabetes: no 2. Hyperthyroidism: no 3. Menopause before 45: age 44 4. Malnutrition: no 5. Chronic liver disease: no Rheumatoid Arthritis: no Current Tobacco Use: no RISK FACTORS HISTORY OF: Hip Fracture (Right/Left): no Spine Fracture: no History of Wrist Fracture: no Surgery to Spine/Hip(right/left)/Wrist (right/left): no MEDICATIONS: Thyroid Medications: Levothyroxine How Long: past 5 years Osteoporosis Medications: no EXAM MEASUREMENTS: Bone mineral densitometry was performed using the UXPin System. Bone mineral density as measured about the Lumbar spine is: ----- L1-L4(G/cm2): 1.464 T Score Values are as follows: ----- L1: 1.0 ----- L2: 2.0 ----- L3: 4.2 ----- L4: 2.3 ----- L1-L4: 2.4 Z Score Values are as follows: ----- L1: 2.1 ----- L2: 3.1 ----- L3: 5.3 ----- L4: 3.4 ----- L1-L4: 3.5 Bone mineral density has: increased 9.1 % since study of: 03/01/2022 Bone mineral density about the R hip (g/cm2): 1.064 Bone mineral density about the L hip (g/cm2): 1.023 T Score values are as follows: -----R Neck: 0.7 -----L Neck: -0.1 -----R Total: 0.4 -----L Total: 0.1 Z Score values are as follows: -----R Neck: 2.4 -----L Neck: 1.6 -----R Total: 2.0 -----L Total: 1.7 Bone mineral density has: increased 5.8 % since study of: 03/01/2022 FRAX%s: The graph provided illustrates a 8.2% chance for a major osteoporotic fx and a 1.2% chance fo r the hips probability for fx in 10 years time. IMPRESSION: Normal (Values between +1 and -1 indicate normal bone mass). Consider repeating this study in 5 year s or sooner if there is some new clinical indication. NOTE: T-SCORE=SD OF THE YOUNG ADULT MEAN. [facility], , 05/14/2024 9:36 PM
== END | disposition home or self-care (01) ==
LOC: RADBDWWP 09:34
PROVIDERS: ATTEND Internal Medicine Hematology & Oncology
DX: M81.0 Age-related osteoporosis without current pathological fracture
CPT/HCPCS: 77080

== ENCOUNTER → 2024-05-16 | Outpatient (CLI) | payer MEDICARE ==
--- NOTE | 2024-05-16 14:09 | XR ---
EXAMINATION TYPE: XR lumbar spine 2 or 3V DATE OF EXAM: 05/16/2024 CLINICAL HISTORY: pain TECHNIQUE: Three views of the lumbar spine are submitted. COMPARISON: None. FINDINGS: There are 5 lumbar type vertebral bodies identified. The lumbar spine shows satisfactory alignment w ithout evidence of acute fracture or dislocation. Vertebral body heights are within normal limits. Severe multilevel degenerative disc disease with vacuum disc and endplate sclerosis as well as ventra l spondylosis and facet joint arthropathy. The overlying soft tissue appears unremarkable. IMPRESSION: No acute fracture or dislocation is seen in the lumbar spine. ICD 10 NO FRACTURE, INITIAL EVALUATION [facility], , 05/16/2024 2:06 PM
== END | disposition home or self-care (01) ==
LOC: RADXRWHC 13:26
PROVIDERS: ATTEND Internal Medicine Geriatric Medicine
DX: M48.061 Spinal stenosis, lumbar region without neurogenic claudication (principal)
CPT/HCPCS: 72100

== ENCOUNTER 2024-08-29 14:18 | Emergency (ER) | payer MEDICARE ==
--- NOTE | 2024-08-29 14:59 | ED ---
Fall HPI - General Chief Complaint: Fall Stated Complaint: fall, back pain Time Seen by Provider: 08/29/24 14:31 Source: patient, EMS, RN notes reviewed Mode of arrival: EMS Limitations: no limitations - History of Present Illness Initial Comments: This is an 84-year-old female with history of breast/skin cancer, A-fib and DM presenting via EMS with left upper back pain (3/10) following a fall at home at 1300 today. Patient states she was performing chores at home home when she suddenly fell backwards, striking her left upper back on the bottom carpeted stair. Denies precluding dizziness/lightheadedness, palpitations, chest pain, dyspnea/SOB. Endorses history of frequent falls with use of cane for ambulation. Lives alone. Endorses difficulty breathing following the fall which is since resolved. Denies prolonged downtime, being able to help herself to her feet within several minutes of fall. Denies loss of consciousness, head injury, headache, neck pain, extremity radiculopathy/paresthesia/weakness. Endorses use of Eliquis. Patient states pain is worse with movement (5/10) but denies reproducible pain with inhalation. Denies other injuries or significant pain, refusing offered pain medication. 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 Place Fall Occurred: home Loss of Consciousness: none Prolonged Down Time?: no Symptoms Prior to Fall: none Location: back Severity scale (1-10): 3 Quality: sharp Context: history of frequent falls Associated Symptoms: denies - Related Data Home Medications Medication Instructions Recorded Confirmed Acetaminophen Tab [Tylenol] 1,000 mg PO Q6HR PRN 10/06/21 09/09/23 Cholecalciferol [Vitamin D3 (25 25 mcg PO DAILY 10/06/21 09/09/23 Mcg = 1000 Iu)] Cranberry Conc/C/Bacill Coag 1 tab PO DAILY 10/06/21 09/09/23 [Cranberry Urinary 250-30-3.5MG] FLUoxetine HCL [PROzac] 20 mg PO QAM 10/06/21 09/09/23 Letrozole [Femara] 2.5 mg PO DAILY 10/06/21 09/09/23 Levothyroxine Sodium [Synthroid] 50 mcg PO QAM 10/06/21 09/09/23 Meloxicam [Mobic] 15 mg PO DAILY 10/06/21 09/09/23 metFORMIN HCL [Glucophage] 500 mg PO BID 10/06/21 09/09/23 Olmesartan/Hydrochlorothiazide 1 tab PO DAILY 10/07/21 09/09/23 [Olmesartan-Hctz 40-12.5 mg Tab] Vitamin E (Unknown Dose) 1 tab PO DAILY 09/06/23 09/09/23 Previous Rx's Medication Instructions Recorded Apixaban [Eliquis] 5 mg PO BID 30 Days #60 tab 10/07/21 Atorvastatin [Lipitor] 40 mg PO DAILY #30 tab 10/07/21 Metoprolol Tartrate [Lopressor] 50 mg PO BID 30 Days #60 tab 10/07/21 Cephalexin [Keflex] 500 mg PO BID 1 Days #10 cap 02/08/24 Lidocaine 4% Patch 1 patch TOPICAL Q24H PRN #10 patch 08/29/24 Allergies Allergy/AdvReac Type Severity Reaction Status Date / Time amoxicillin Allergy Rash/Hives Verified 02/08/24 15:34 Sulfa (Sulfonamide Allergy Rash/Hives Verified 02/08/24 15:34 Antibiotics) Review of Systems ROS Statement: Those systems with pertinent positive or pertinent negative responses have been documented in the HPI. ROS Other: All systems not noted in ROS Statement are negative. 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 Varicose veins. History of Any Multi-Drug Resistant Organisms: None Reported Past Surgical History: Breast Surgery, Section, Hysterectomy, Joint Replacement Additional Past Surgical History / Comment(s): Bilateral knee replacement, vein stripping, bilateral masectomy, viatrectomy, section X2. Past Anesthesia/Blood Transfusion Reactions: No Reported Reaction Past Psychological History: Anxiety Smoking Status: Never smoker Past Alcohol Use History: None Reported Past Drug Use History: None Reported - Past Family History Mother Family Medical History: No Reported History General Exam Limitations: no limitations General appearance: alert, in no apparent distress Head exam: Present: atraumatic, normocephalic, normal inspection Eye exam: Present: normal appearance, PERRL, EOMI. Absent: scleral icterus, conjunctival injection, periorbital swelling ENT exam: Present: normal exam, mucous membranes moist Neck exam: Present: normal inspection. Absent: tenderness, meningismus, lymphadenopathy Respiratory exam: Present: normal lung sounds bilaterally. Absent: respiratory distress, wheezes, rales, rhonchi, stridor, accessory muscle use, decreased breath sounds Cardiovascular Exam: Present: regular rate, normal rhythm, normal heart sounds. Absent: systolic murmur, diastolic murmur, rubs, gallop, clicks GI/Abdominal exam: Present: soft, normal bowel sounds. Absent: distended, tenderness, guarding, rebound, rigid Extremities exam: Present: normal inspection, full ROM, normal capillary refill. Absent: tenderness, pedal edema, joint swelling, calf tenderness Back exam: Present: normal inspection, tenderness (Left dorsal mid rib pain without crepitus, deformity/tenting, ecchymosis. Negative reproducible pain wi th bilateral axillary squeezing). Absent: paraspinal tenderness, vertebral tenderness Neurological exam: Present: alert, oriented X3, CN II-XII intact Psychiatric exam: Present: normal affect, normal mood Skin exam: Present: warm, dry, intact, normal color. Absent: rash Course Vital Signs 08/29/24 08/29/24 14:31 16:05 Temperature 98.1 F 98.4 F Pulse Rate 85 90 Respiratory 19 17 Rate Blood Pressure 165/100 178/118 O2 Sat by Pulse 99 98 Oximetry Medical Decision Making - Medical Decision Making Was pt. sent in by a medical professional or institution (, PA, OPERATIONS PROCESSOR, urgent care, hospital, or [facility]...) When possible be specific @ -[No] Did you speak to anyone other than the patient for history (EMS, parent, family, police, friend...)? What history was obtained from this source @ -[No] Did you review nursing and triage notes (agree or disagree)? Why? @ -[I reviewed and agree with nursing and triage notes] Were old charts reviewed (outside hosp., previous admission, EMS record, old EK G, old radiological studies, urgent care reports/EKG's, [facility] records)? Report findings @ -[No old charts were reviewed] Differential Diagnosis (chest pain, altered mental status, abdominal pain women, abdominal pain men, vaginal bleeding, weakness, fever, dyspnea, syncope, headache, dizziness, GI bleed, back pain, seizure, CVA, palpatations, mental health, musculoskeletal)? @ -Differential Back Pain: Strain, zoster, cauda equina syndrome, epidural abscess, vertebral osteomyelitis, discitis, fracture, subluxation, disc herniation, DJD, spinal stenosis, dissection, AAA, pancreatitis, peptic ulcer disease, pyelonephritis, kidney stone, this is not meant to be an all-inclusive list. EKG interpreted by me (3pts min.). @ -Atrial fibrillation without ST changes or T wave inversion. Ventricular rate 92 bpm, QRS duration 94 ms, QTc 423 ms. X-rays interpreted by me (1pt min.). @ -[None done] CT interpreted by me (1pt min.). @ -[None done] U/S interpreted by me (1pt. min.). @ -[None done] What testing was considered but not performed or refused? (CT, X-rays, U/S, labs)? Why? @ -[None] What meds were considered but not given or refused? Why? @ -[None] Did you discuss the management of the patient with other professionals (professionals i.e. , PA, OPERATIONS PROCESSOR, lab, RT, psych nurse, social services technician, jigsawyer, teacher, safety and security officer, case supervisor)? Give summary @ -[No] Was smoking cessation discussed for >3mins.? @ -[No] Was critical care preformed (if so, how long)? @ -[No] Were there social determinants of health that impacted care today? How? (Homelessness, low income, unemployed, alcoholism, drug addiction, transportation, low edu. Level, literacy, decrease access to med. care, longterm, rehab)? @ -[No] Was there de-escalation of care discussed even if they declined (Discuss DNR or withdrawal of care, Hospice)? DNR status @ -[No] What co-morbidities impacted this encounter? (DM, HTN, Smoking, COPD, CAD, Cancer, CVA, ARF, Chemo, Hep., AIDS, mental health diagnosis, sleep apnea, morbid obesity)? @ -[None] Was patient admitted / discharged? Hospital course, mention meds given and route, prescriptions, significant lab abnormalities, going to OR and other pertinent info. @ -[hospital course] Undiagnosed new problem with uncertain prognosis? @ -[No] Drug Therapy requiring intensive monitoring for toxicity (Heparin, Nitro, Insulin, Cardizem)? @ -[No] Were any procedures done? @ -[No] Diagnosis/symptom? @ -Displaced closed dorsal rib fracture Acute, or Chronic, or Acute on Chronic? @ -Acute Uncomplicated (without systemic symptoms) or Complicated (systemic symptoms)? @ -Uncomplicated Side effects of treatment? @ -[No] Exacerbation, Progression, or Severe Exacerbation? @ -[No] Poses a threat to life or bodily function? How? (Chest pain, [place], [place], pneumonia, PE, COPD, DKA, ARF, appy, cholecystitis, CVA, Diverticulitis, Homicidal, Suicidal, threat to staff... and all critical care pts) @ -[No] Disposition Clinical Impression: Closed traumatic displaced fracture of rib on left side Disposition: HOME SELF-CARE Condition: Good Instructions (If sedation given, give patient instructions): How to Use an Incentive Spirometer (ED), Rib Fracture (ED), Fall Prevention for Older Adults (ED) Additional Instructions: Follow-up with PCP for ongoing care/management. Prescriptions: Lidocaine 4% Patch 1 patch TOPICAL Q24H PRN #10 patch PRN Reason: Pain Is patient prescribed a controlled substance at d/c from ED?: No Referrals: Toni Hernandez MD [Primary Care Provider] - 1-2 days Time of Disposition: 15:57
--- NOTE | 2024-08-29 15:41 | XR ---
EXAMINATION TYPE: XR ribs LT w pa chest xray DATE OF EXAM: 08/29/2024 3:15 PM COMPARISON: None. CLINICAL INDICATION: Female, 84 years old with history of Dorsal mid rib pain/tenderness following fa ll, pain TECHNIQUE: 2 view(s) obtained. Exam is supplemented with frontal chest FINDINGS: Heart size is mildly prominent. Pulmonary vasculature is normal. No suspicious infiltrates evident There is a displaced rib fracture posterior lateral sixth rib IMPRESSION: 1. Posterior left sixth rib fracture [facility], , 08/29/2024 3:38 PM
[2024-08-29 16:34] VITALS: BP 178/118; PULSE 90; RESP 17; TEMP 98.4
== END 2024-08-29 16:40 | disposition home or self-care (01) ==
LOC: EC 14:18
DX: S22.32XA Fracture of one rib, left side, initial encounter for closed fracture (principal); Z88.0 Allergy status to penicillin; Z88.2 Allergy status to sulfonamides; W18.00XA Striking against unspecified object with subsequent fall, initial encounter; Y92.009 Unspecified place in unspecified non-institutional (private) residence as the place of occurrence of the external cause
CPT/HCPCS: 93005; 99284

== ENCOUNTER 2024-09-02 14:19 | Emergency (ER) | payer MEDICARE ==
[2024-09-02 14:26] VITALS: RESP 16
--- NOTE | 2024-09-02 15:25 | ED ---
General Adult HPI - General Chief complaint: Recheck/Abnormal Lab/Rx Stated complaint: high blood pressure Time Seen by Provider: 09/02/24 14:30 Source: patient Mode of arrival: wheelchair Limitations: no limitations - History of Present Illness Initial comments: 84-year-old female with past medical history of A-fib, diabetes, hypertension, hyperlipidemia who presents to the emergency department with high blood pressure. Patient states that she has had some issues with her blood pressure recently. She has been keeping a log. Today the blood pressure readings were high. She does have an appointment scheduled with Dr. Martínez on Tuesday. She denies having any symptoms to include chest pain, shortness of breath or headache. She did call her daughter who recommended that she talk to the cardiology office. The answering service recommended that the patient come into the hospital for evaluation even though the patient did not feel that she needs it. The patient did have a trip and fall with a broken rib on her left side which was diagnosed on the . States that her pain is controlled with Tylenol. She denies any increased work of breathing. She has also been using Lidoderm patches. Blood pressure appeared to increase a bit when the patient broke her rib. She denies any shortness of breath, fevers or productive cough. No other alleviating, precipitating or modifying factors - Related Data Home Medications Medication Instructions Recorded Confirmed Acetaminophen Tab [Tylenol] 1,000 mg PO Q6HR PRN 10/06/21 09/09/23 Cholecalciferol [Vitamin D3 (25 25 mcg PO DAILY 10/06/21 09/09/23 Mcg = 1000 Iu)] Cranberry Conc/C/Bacill Coag 1 tab PO DAILY 10/06/21 09/09/23 [Cranberry Urinary 250-30-3.5MG] FLUoxetine HCL [PROzac] 20 mg PO QAM 10/06/21 09/09/23 Letrozole [Femara] 2.5 mg PO DAILY 10/06/21 09/09/23 Levothyroxine Sodium [Synthroid] 50 mcg PO QAM 10/06/21 09/09/23 Meloxicam [Mobic] 15 mg PO DAILY 10/06/21 09/09/23 metFORMIN HCL [Glucophage] 500 mg PO BID 10/06/21 09/09/23 Olmesartan/Hydrochlorothiazide 1 tab PO DAILY 10/07/21 09/09/23 [Olmesartan-Hctz 40-12.5 mg Tab] Vitamin E (Unknown Dose) 1 tab PO DAILY 09/06/23 09/09/23 Previous Rx's Medication Instructions Recorded Apixaban [Eliquis] 5 mg PO BID 30 Days #60 tab 10/07/21 Atorvastatin [Lipitor] 40 mg PO DAILY #30 tab 10/07/21 Metoprolol Tartrate [Lopressor] 50 mg PO BID 30 Days #60 tab 10/07/21 Cephalexin [Keflex] 500 mg PO BID 1 Days #10 cap 02/08/24 Lidocaine 4% Patch 1 patch TOPICAL Q24H PRN #10 patch 08/29/24 Allergies Allergy/AdvReac Type Severity Reaction Status Date / Time amoxicillin Allergy Rash/Hives Verified 09/02/24 14:26 Sulfa (Sulfonamide Allergy Rash/Hives Verified 09/02/24 14:26 Antibiotics) Review of Systems ROS Statement: Those systems with pertinent positive or pertinent negative responses have been documented in the HPI. ROS Other: All systems not noted in ROS Statement are negative. 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 Varicose veins. History of Any Multi-Drug Resistant Organisms: None Reported Past Surgical History: Breast Surgery, Section, Hysterectomy, Joint Replacement Additional Past Surgical History / Comment(s): Bilateral knee replacement, vein stripping, bilateral masectomy, viatrectomy, section X2. Past Anesthesia/Blood Transfusion Reactions: No Reported Reaction Past Psychological History: Anxiety Smoking Status: Never smoker Past Alcohol Use History: None Reported Past Drug Use History: None Reported - Past Family History Mother Family Medical History: No Reported History General Exam Limitations: no limitations General appearance: alert, in no apparent distress Head exam: Present: atraumatic, normocephalic, normal inspection Eye exam: Present: normal appearance, PERRL, EOMI. Absent: scleral icterus, conjunctival injection, periorbital swelling ENT exam: Present: normal exam, mucous membranes moist Neck exam: Present: normal inspection. Absent: tenderness, meningismus, lymphadenopathy Respiratory exam: Present: normal lung sounds bilaterally, chest wall tenderness (On the left side). Absent: respiratory distress, wheezes, rales, rhonchi, stridor Cardiovascular Exam: Present: regular rate, normal rhythm, normal heart sounds. Absent: systolic murmur, diastolic murmur, rubs, gallop, clicks GI/Abdominal exam: Present: soft, normal bowel sounds. Absent: distended, tenderness, guarding, rebound, rigid Extremities exam: Present: normal inspection, full ROM, normal capillary refill. Absent: tenderness, pedal edema, joint swelling, calf tenderness Back exam: Present: normal inspection Neurological exam: Present: alert, oriented X3, CN II-XII intact Psychiatric exam: Present: normal affect, normal mood Skin exam: Present: warm, dry, intact, normal color. Absent: rash Course Vital Signs 09/02/24 09/02/24 14:21 15:42 Temperature 97.7 F 97.8 F Pulse Rate 93 88 Respiratory 16 16 Rate Blood Pressure 144/87 153/72 O2 Sat by Pulse 98 99 Oximetry Medical Decision Making - Medical Decision Making Was pt. sent in by a medical professional or institution (, PA, END USER CONSULTANT, urgent care, hospital, or snf...) When possible be specific @ -Patient was sent in from the cardiology office Did you speak to anyone other than the patient for history (EMS, parent, family, police, friend...)? What history was obtained from this source @ -No Did you review nursing and triage notes (agree or disagree)? Why? @ -I reviewed and agree with nursing and triage notes Were old charts reviewed (outside hosp., previous admission, EMS record, old EKG, old radiological studies, urgent care reports/EKG's, snf records)? Report findings @ -I reviewed the chart from the when the patient presented after a fall Differential Diagnosis (chest pain, altered mental status, abdominal pain women, abdominal pain men, vaginal bleeding, weakness, fever, dyspnea, syncope, headache, dizziness, GI bleed, back pain, seizure, CVA, palpatations, mental health, musculoskeletal)? @ -Rib fracture, pneumothorax, pneumonia, accelerated hypertension EKG interpreted by me (3pts min.). @ -Not done X-rays interpreted by me (1pt min.). @ -None done CT interpreted by me (1pt min.). @ -None done U/S interpreted by me (1pt. min.). @ -None done What testing was considered but not performed or refused? (CT, X-rays, U/S, labs)? Why? @ -Chest x-ray and EKG were considered however patient refused What meds were considered but not given or refused? Why? @ -None Did you discuss the management of the patient with other professionals (professionals i.e. Dr., PA, END USER CONSULTANT, lab, RT, psych nurse, director of social services, security auditor, teacher, loan service officer, case operator)? Give summary @ -No Was smoking cessation discussed for >3mins.? @ -No Was critical care preformed (if so, how long)? @ -No Were there social determinants of health that impacted care today? How? (Homelessness, low income, unemployed, alcoholism, drug addiction, transportation, low edu. Level, literacy, decrease access to med. care, correction, rehab)? @ -No Was there de-escalation of care discussed even if they declined (Discuss DNR or withdrawal of care, Hospice)? DNR status @ -No What co-morbidities impacted this encounter? (DM, HTN, Smoking, COPD, CAD, Cancer, CVA, ARF, Chemo, Hep., AIDS, mental health diagnosis, sleep apnea, morbid obesity)? @ -Hypertension, hyperlipidemia Was patient admitted / discharged? Hospital course, mention meds given and route, prescriptions, significant lab abnormalities, going to OR and other pertinent info. @ -Upon arrival patient seen and evaluated in bed 23. Thorough history and physical exam was performed. We did obtain multiple blood pressure readings on the patient. Her diastolic is slightly high however systolic is only marginally elevated. Patient does admit to high blood pressure with worsening after her fall. Informed her that the high blood pressure may be pain induced. She denies any fevers chills cough or shortness of breath. I did recommend EKG and chest x-ray however patient states that she is asymptomatic for her high blood pressure. She only presents because she was told to by her cardiology office however she would prefer to just talk to her loan adviser on Tuesday at her scheduled appointment about her high blood pressure. I did offer to write the patient something more for pain control however patient refused and wanted to continue taking Tylenol and use her Lidoderm patches. Patient will be discharged at this time. Instructed to return should she be agreeable to any workup and keep her scheduled appointment with her loan adviser on Tuesday. Patient agreeable and discharged in stable condition Undiagnosed new problem with uncertain prognosis? @ -No Drug Therapy requiring intensive monitoring for toxicity (Heparin, Nitro, Insulin, Cardizem)? @ -No Were any procedures done? @ -No Diagnosis/symptom? @ -Accelerated hypertension without symptoms, recent fall with rib fracture Acute, or Chronic, or Acute on Chronic? @ -Acute Uncomplicated (without systemic symptoms) or Complicated (systemic symptoms)? @ -Complicated Side effects of treatment? @ -No Exacerbation, Progression, or Severe Exacerbation? @ -No Poses a threat to life or bodily function? How? (Chest pain, [place], [place], pneumonia, PE, COPD, DKA, ARF, appy, cholecystitis, CVA, Diverticulitis, Homicidal, Suicidal, threat to staff... and all critical care pts) @ -No Disposition Clinical Impression: High blood pressure Disposition: HOME SELF-CARE Condition: Stable Instructions (If sedation given, give patient instructions): Hypertension (ED) Additional Instructions: Please continue measuring your blood pressure twice a day. Follow-up with a loan adviser on Tuesday. Return to the ER should you have any symptoms to include headache, chest pain, shortness of breath or visual changes. Is patient prescribed a controlled substance at d/c from ED?: No Referrals: Toni Hernandez MD [Primary Care Provider] - 1-2 days Aden Martínez MD [STAFF PHYSICIAN] - 1-2 days Time of Disposition: 15:25
[2024-09-02 15:43] VITALS: BP 153/72; PULSE 88; TEMP 97.8
== END 2024-09-02 15:44 | disposition home or self-care (01) ==
LOC: EC 14:19
DX: S22.32XA Fracture of one rib, left side, initial encounter for closed fracture (principal); I11.9 Hypertensive heart disease without heart failure; I48.91 Unspecified atrial fibrillation; E78.5 Hyperlipidemia, unspecified; Z88.0 Allergy status to penicillin; Z88.2 Allergy status to sulfonamides; W01.0XXA Fall on same level from slipping, tripping and stumbling without subsequent striking against object, initial encounter
CPT/HCPCS: 99283

== ENCOUNTER 2025-01-22 11:41 | Emergency (ER) | payer MEDICARE ==
[2025-01-22 11:46] VITALS: TEMP 97.3
[2025-01-22 12:46] LABS: Basophils # (A) 0.04 10*3/uL (0.00-0.10); Basophils % (A) 0.5 %; Eosinophils # (A) 0.14 10*3/uL (0.04-0.35); Eosinophils % (A) 1.7 %; HGB 11.6 g/dL (12.0-15.0); Lymphocytes # (A) 0.98 10*3/uL (0.90-5.00); Lymphocytes % (A) 11.8 %; MCH 30.1 pg (27.0-32.0); MCHC 34.1 g/dL (32.0-37.0); MCV 88.1 fL (80.0-97.0); Monocytes # (A) 0.63 10*3/uL (0.20-1.00); Monocytes % (A) 7.6 %; Neutrophils # (A) 6.49 10*3/uL (1.80-7.70); Neutrophils % (A) 77.9 %; Platelet Count 257 10*3/uL (140-440); RBC 3.86 10*6/uL (4.10-5.20); RDW 13.8 % (11.5-14.5); WBC 8.32 10*3/uL (4.50-10.00)
[2025-01-22] MEDS: SODIUM CHLORIDE 0.9% 500 ML 500 ML IV STA (12:46)
[2025-01-22] MEDS: METOPROLOL TARTRATE 5 MG/5 ML VIAL IVP STA ×2 (12:47→14:04)
[2025-01-22 13:16] LABS: INR 1.3 (<1.2); Partial Thromboplastin Time 28.1 sec (22.0-30.0); Prothrombin Time 13.5 sec (10.0-12.5)
[2025-01-22 13:24] LABS: ALT 13 U/L (4-34); African American GFR (CKD) 89 (>60 ml/min/1.73 sqM); Anion Gap 10 mmol/L; Blood Urea Nitrogen 20 mg/dL (7-17); Calcium 9.6 mg/dL (8.4-10.2); Carbon Dioxide 26 mmol/L (22-30); Chloride 102 mmol/L (98-107); Glucose 91 mg/dL (74-99); Non-African American GFR(CKD) 77 (>60 ml/min/1.73 sqM); Sodium 138 mmol/L (137-145); Total Bilirubin 0.9 mg/dL (0.2-1.3)
[2025-01-22 13:47] LABS: AST 24 U/L (14-36); Albumin 4.3 g/dL (3.5-5.0); Magnesium 1.2 mg/dL (1.6-2.3)
[2025-01-22 13:48] LABS: Alkaline Phosphatase 54 U/L (38-126)
[2025-01-22 13:59] LABS: Potassium 4.1 mmol/L (3.5-5.1)
--- NOTE | 2025-01-22 14:03 | XR ---
EXAMINATION TYPE: XR chest 2V DATE OF EXAM: 01/22/2025 1:48 PM COMPARISON: Chest radiographs from 08/29/2024, CTA chest 01/04/2025 TECHNIQUE: XR chest 2V Frontal and lateral views of the chest. CLINICAL INDICATION:Female, 84 years old with history of dysrhythmia; FINDINGS: Patient is rotated which limits evaluation. Lungs/Pleura: There is no evidence of pleural effusion, focal consolidation, or pneumothorax. Pulmonary vascularity: Unremarkable. Heart/mediastinum: Cardiomediastinal silhouette is enlarged and stable. Musculoskeletal: Multiple level degenerative disc disease changes seen throughout the spine. Multiple posterior left-sided rib fractures with callus formation involving ribs 5 through 8. IMPRESSION: 1. No acute cardiopulmonary disease/process. 2. Healing left posterior 5-8 rib fractures. [facility], , 01/22/2025 2:01 PM
[2025-01-22 15:09] VITALS: RESP 18
[2025-01-22] MEDS: METOPROLOL TARTRATE 50 MG TAB PO STA (15:09)
[2025-01-22] MEDS: MAGNESIUM SULFATE-D5W PMX 1 GM in DEXTROSE/WATER 1 100ML.BAG IVPB ONE (15:09)
[2025-01-22] MEDS: MAGNESIUM OXIDE 400 MG TAB PO STA (15:09)
--- NOTE | 2025-01-22 15:22 | ED ---
Arrhythmia/Palpitations HPI - General Chief Complaint: Arrhythmia/Palpitations Stated Complaint: Fall on thinner-Facial injury Time Seen by Provider: 01/22/25 11:48 Source: patient, RN notes reviewed Mode of arrival: wheelchair Limitations: no limitations - History of Present Illness Initial Comments: 84-year-old female presents emergency department from Dr. Ramirez office for evaluation of A-fib, fall, facial injury on blood thinners. Patient reportedly has had multiple falls of recently striking her face with nasal pain, ecchymosis. Patient denies any falls in last 24 hours. Patient states that she does have moderate facial pain mild headache. Patient states that she takes Eliquis for atrial fibrillation but she has been out of her metoprolol in which she was found to have an elevated heart rate with her A-fib. Patient states that she has no chest pain no dizziness no nausea vomiting. Patient is here with family member who has concerns as she has had some cognitive changes over the last several months. Patient is currently followed by cardiology very closely along what she has but also been recently evaluated for possible Watchman. - Related Data Home Medications Medication Instructions Recorded Confirmed Acetaminophen Tab [Tylenol] 1,000 mg PO Q6HR PRN 10/06/21 09/09/23 Cholecalciferol [Vitamin D3 (25 25 mcg PO DAILY 10/06/21 09/09/23 Mcg = 1000 Iu)] Cranberry Conc/C/Bacill Coag 1 tab PO DAILY 10/06/21 09/09/23 [Cranberry Urinary 250-30-3.5MG] FLUoxetine HCL [PROzac] 20 mg PO QAM 10/06/21 09/09/23 Letrozole [Femara] 2.5 mg PO DAILY 10/06/21 09/09/23 Levothyroxine Sodium [Synthroid] 50 mcg PO QAM 10/06/21 09/09/23 Meloxicam [Mobic] 15 mg PO DAILY 10/06/21 09/09/23 metFORMIN HCL [Glucophage] 500 mg PO BID 10/06/21 09/09/23 Olmesartan/Hydrochlorothiazide 1 tab PO DAILY 10/07/21 09/09/23 [Olmesartan-Hctz 40-12.5 mg Tab] Vitamin E (Unknown Dose) 1 tab PO DAILY 09/06/23 09/09/23 Previous Rx's Medication Instructions Recorded Apixaban [Eliquis] 5 mg PO BID 30 Days #60 tab 10/07/21 Atorvastatin [Lipitor] 40 mg PO DAILY #30 tab 10/07/21 Metoprolol Tartrate [Lopressor] 50 mg PO BID 30 Days #60 tab 10/07/21 Cephalexin [Keflex] 500 mg PO BID 1 Days #10 cap 02/08/24 Lidocaine 4% Patch 1 patch TOPICAL Q24H PRN #10 patch 08/29/24 Cephalexin [Keflex] 500 mg PO Q6HR #40 cap 01/16/25 Allergies Allergy/AdvReac Type Severity Reaction Status Date / Time amoxicillin Allergy Rash/Hives Verified 01/22/25 11:46 Sulfa (Sulfonamide Allergy Rash/Hives Verified 01/22/25 11:46 Antibiotics) Review of Systems ROS Statement: Those systems with pertinent positive or pertinent negative responses have been documented in the HPI. ROS Other: All systems not noted in ROS Statement are negative. Past Medical History Past Medical History: Atrial Fibrillation, Cancer, Diabetes Mellitus, Eye Disorder, Hearing Disorder / Deafness, Hyperlipidemia, Hypertension, Osteoarthri tis (OA), Thyroid Disorder Additional Past Medical History / Comment(s): HX BREAST CANCER, HX SKIN CANCER ,"HOLE IN [place] RIGHT EYE." Bilateral hearing aid use. Varicose veins. History of Any Multi-Drug Resistant Organisms: None Reported Past Surgical History: Breast Surgery, Section, Hysterectomy, Joint Replacement Additional Past Surgical History / Comment(s): Bilateral knee replacement, vein stripping, bilateral masectomy, viatrectomy, section X2. Past Anesthesia/Blood Transfusion Reactions: No Reported Reaction Past Psychological History: Anxiety Smoking Status: Never smoker Past Alcohol Use History: None Reported Past Drug Use History: None Reported - Past Family History Mother Family Medical History: No Reported History General Exam Limitations: no limitations General appearance: alert, in no apparent distress Head exam: Present: atraumatic, normocephalic, normal inspection Eye exam: Present: normal appearance, PERRL, EOMI, periorbital tenderness (Mild laterally, complaint nasal tenderness with bilateral ecchymosis). Absent: scleral icterus, conjunctival injection ENT exam: Present: normal oropharynx, mucous membranes moist, TM's normal bilaterally, normal external ear exam. Absent: normal exam (Nasal tenderness and ecchymosis) Neck exam: Present: normal inspection, full ROM. Absent: tenderness, meningism us, lymphadenopathy Respiratory exam: Present: normal lung sounds bilaterally. Absent: respiratory distress, wheezes, rales, rhonchi, stridor Cardiovascular Exam: Present: tachycardia, irregular rhythm, normal heart sounds. Absent: systolic murmur, diastolic murmur, rubs, gallop, clicks GI/Abdominal exam: Present: soft, normal bowel sounds. Absent: distended, tenderness, guarding, rebound, rigid Neurological exam: Present: alert, oriented X3, CN II-XII intact, reflexes normal. Absent: motor sensory deficit Course Vital Signs 01/22/25 01/22/25 01/22/25 11:42 12:24 12:45 Temperature 97.3 F L Pulse Rate 132 H 126 H 120 H Respiratory 18 20 20 Rate Blood Pressure 130/85 123/79 O2 Sat by Pulse 98 97 97 Oximetry 01/22/25 01/22/25 01/22/25 12:52 14:01 14:10 Temperature Pulse Rate 96 97 84 Respiratory 18 18 20 Rate Blood Pressure 138/78 110/70 141/87 O2 Sat by Pulse 95 100 98 Oximetry 01/22/25 15:08 Temperature Pulse Rate 87 Respiratory 18 Rate Blood Pressure 130/87 O2 Sat by Pulse 99 Oximetry EKG Findings - EKG Comments: EKG Findings:: EKG performed at 12: 37 atrial fib with RVR rate of 119 QRS 94 QT/QTc 328/398 - EKG Results: EKG: interpreted by RENU Medical Decision Making - Medical Decision Making Was pt. sent in by a medical professional or institution (, PA, CASTER HELPER, urgent care, hospital, or penitentiary...) When possible be specific @ -PCP Dr. ramirez Did you speak to anyone other than the patient for history (EMS, parent, family, police, friend...)? What history was obtained from this source @ -No Did you review nursing and triage notes (agree or disagree)? Why? @ -I reviewed and agree with nursing and triage notes Were old charts reviewed (outside hosp., previous admission, EMS record, old EKG, old radiological studies, urgent care reports/EKG's, penitentiary records)? Report findings @ -No old charts were reviewed Differential Diagnosis (chest pain, altered mental status, abdominal pain women, abdominal pain men, vaginal bleeding, weakness, fever, dyspnea, syncope, headache, dizziness, GI bleed, back pain, seizure, CVA, palpatations, mental health, musculoskeletal)? @ -[, Intracranial hemorrhage, skull fracture, cervical fracture, facial fracture, nasal fracture differential Palpitations Ventricular arrhythmias, atrial arrhythmias, myocardial infarction, anemia, thyrotoxicosis, electrolyte imbalance, hypokalemia, pulmonary embolism, pulmonary disease, drugs, alcohol, anxiety, stress.... This is not meant to be an all-inclusive list. EKG interpreted by me (3pts min.). @ -As above X-rays interpreted by me (1pt min.). @ -Chest x-ray shows no acute cardiopulmonary process. CT interpreted by me (1pt min.). @ -None done U/S interpreted by me (1pt. min.). @ -None done What testing was considered but not performed or refused? (CT, X-rays, U/S, labs)? Why? @ -CT brain, C-spine was ordered and recommended for the advise given that patient is on current Eliquis had multiple falls along with head trauma noted facial trauma. Patient's family ember in the left the patient to CT stating that she has had too many prior CTs and that she is exposed to radiation understanding that she has very high risk for intracranial hemorrhage which may lead to . She states she does understand and along with the patient and states that she does not want to complete the CT because family advised her not to have the CT performed. What meds were considered but not given or refused? Why? @ -None Did you discuss the management of the patient with other professionals (professionals i.e. , PA, CASTER HELPER, lab, RT, psych nurse, social work msw, laborer concrete paving, teacher, chief business development officer, case loader operator)? Give summary @ -No Was smoking cessation discussed for >3mins.? @ -No Was critical care preformed (if so, how long)? @ -No Were there social determinants of health that impacted care today? How? (Homelessness, low income, unemployed, alcoholism, drug addiction, transportation, low edu. Level, literacy, decrease access to med. care, retirement, rehab)? @ -No Was there de-escalation of care discussed even if they declined (Discuss DNR or withdrawal of care, Hospice)? DNR status @ -No What co-morbidities impacted this encounter? (DM, HTN, Smoking, COPD, CAD, Cancer, CVA, ARF, Chemo, Hep., AIDS, mental health diagnosis, sleep apnea, morbid obesity)? @ -A-fib Was patient admitted / discharged? Hospital course, mention meds given and route, prescriptions, significant lab abnormalities, going to OR and other pertinent info. @ -AMA patient was sent over from PCPs office for evaluation of head trauma on blood thinners along with A-fib. Patient along with patient's family are refusing CT of brain presents high risk for intracranial hemorrhage secondary to be on Eliquis. They do understand and state they understand that this may worsening condition, including of the patient. Patient has not been on her metoprolol 10 days. Patient is found to be in initial A-fib RVR but after doses of metoprolol heart rate has improved. She is anticoagulated in discussion with process engineer felt that the patient does not need to be admitted if heart rate is controlled. Patient did have very mild hypomagnesemia and which replacement was ordered she is advised to take magnesium orally and may follow- up for recheck. Patient is requesting discharge as she states she is hungry. She again understands the risk of leaving without CT. Patient will follow-up with cardiology continue metoprolol as she has a prescription at the pharmacy and Eliquis as directed. Undiagnosed new problem with uncertain prognosis? @ -No Drug Therapy requiring intensive monitoring for toxicity (Heparin, Nitro, Insulin, Cardizem)? @ -No Were any procedures done? @ -No Diagnosis/symptom? @ -Fall, head injury, facial contusion, A-fib Acute, or Chronic, or Acute on Chronic? @ -Acute Uncomplicated (without systemic symptoms) or Complicated (systemic symptoms)? @ -Complicated Side effects of treatment? @ -No Exacerbation, Progression, or Severe Exacerbation? @ -No Poses a threat to life or bodily function? How? (Chest pain, [place], [place], pneumonia, PE, COPD, DKA, ARF, appy, cholecystitis, CVA, Diverticulitis, Homicidal, Suicidal, threat to staff... and all critical care pts) @ -Yes fall on blood thinners risk of intracranial hemorrhage and leading to . - Lab Data Result diagrams: 01/22/25 12:35 01/22/25 12:35 Lab Results 01/22/25 01/22/25 01/22/25 Range/Units 12:35 12:35 12:35 WBC 8.32 (4.50-10.00) 10*3/uL RBC 3.86 L (4.10-5.20) 10*6/uL Hgb 11.6 L (12.0-15.0) g/dL Hct 34.0 L (37.2-46.3) % MCV 88.1 (80.0-97.0) fL MCH 30.1 (27.0-32.0) pg MCHC 34.1 (32.0-37.0) g/dL Plt Count 257 (140-440) 10*3/uL MPV 11.0 (9.5-12.2) fL Immature Gran % (Auto) 0.5 % Neutrophils % 77.9 % Lymphocytes % 11.8 % Monocytes % 7.6 % Eosinophils % 1.7 % Basophils % 0.5 % Immature Gran # 0.04 (0.00-0.04) 10*3/uL Neutrophils # 6.49 (1.80-7.70) 10*3/uL Lymphocytes # 0.98 (0.90-5.00) 10*3/uL Monocytes # 0.63 (0.20-1.00) 10*3/uL Eosinophils # 0.14 (0.04-0.35) 10*3/uL Basophils # 0.04 (0.00-0.10) 10*3/uL PT 13.5 H (10.0-12.5) sec INR 1.3 H (<1.2) APTT 28.1 (22.0-30.0) sec Sodium 138 (137-145) mmol/L Potassium 4.1 (3.5-5.1) mmol/L Chloride 102 (98-107) mmol/L Carbon Dioxide 26 (22-30) mmol/L Anion Gap 10 mmol/L BUN 20 H (7-17) mg/dL Creatinine 0.73 (0.52-1.04) mg/dL Est GFR (CKD-EPI)AfAm 89 (>60 ml/min/1.73 sqM) Est GFR (CKD-EPI)NonAf 77 (>60 ml/min/1.73 sqM) Glucose 91 (74-99) mg/dL Calcium 9.6 (8.4-10.2) mg/dL Magnesium 1.2 L (1.6-2.3) mg/dL Total Bilirubin 0.9 (0.2-1.3) mg/dL AST 24 (14-36) U/L ALT 13 (4-34) U/L Alkaline Phosphatase 54 (38-126) U/L Troponin I (0.000-0.034) ng/mL Total Protein 7.0 (6.3-8.2) g/dL Albumin 4.3 (3.5-5.0) g/dL 01/22/25 Range/Units 12:35 WBC (4.50-10.00) 10*3/uL RBC (4.10-5.20) 10*6/uL Hgb (12.0-15.0) g/dL Hct (37.2-46.3) % MCV (80.0-97.0) fL MCH (27.0-32.0) pg MCHC (32.0-37.0) g/dL Plt Count (140-440) 10*3/uL MPV (9.5-12.2) fL Immature Gran % (Auto) % Neutrophils % % Lymphocytes % % Monocytes % % Eosinophils % % Basophils % % Immature Gran # (0.00-0.04) 10*3/uL Neutrophils # (1.80-7.70) 10*3/uL Lymphocytes # (0.90-5.00) 10*3/uL Monocytes # (0.20-1.00) 10*3/uL Eosinophils # (0.04-0.35) 10*3/uL Basophils # (0.00-0.10) 10*3/uL PT (10.0-12.5) sec INR (<1.2) APTT (22.0-30.0) sec Sodium (137-145) mmol/L Potassium (3.5-5.1) mmol/L Chloride (98-107) mmol/L Carbon Dioxide (22-30) mmol/L Anion Gap mmol/L BUN (7-17) mg/dL Creatinine (0.52-1.04) mg/dL Est GFR (CKD-EPI)AfAm (>60 ml/min/1.73 sqM) Est GFR (CKD-EPI)NonAf (>60 ml/min/1.73 sqM) Glucose (74-99) mg/dL Calcium (8.4-10.2) mg/dL Magnesium (1.6-2.3) mg/dL Total Bilirubin (0.2-1.3) mg/dL AST (14-36) U/L ALT (4-34) U/L Alkaline Phosphatase (38-126) U/L Troponin I <0.012 (0.000-0.034) ng/mL Total Protein (6.3-8.2) g/dL Albumin (3.5-5.0) g/dL Disposition Clinical Impression: A-fib, Fall, Facial contusion, Head injury Disposition: LEFT AGAINST MEDICAL ADVICE Condition: Fair Instructions (If sedation given, give patient instructions): A-fib (Atrial Fibrillation) (ED) Additional Instructions: As directed and follow-up with your die cast supervisor and PCP for laboratory recheck. Please return to the Emergency Department if symptoms worsen or any other concerns. Is patient prescribed a controlled substance at d/c from ED?: No Referrals: Toni Ramirez MD [Primary Care Provider] - 1-2 days Time of Disposition: 15:22
[2025-01-22 16:12] VITALS: BP 123/89; PULSE 82
== END 2025-01-22 16:19 | disposition left against medical advice (07) ==
LOC: EC 11:41
DX: S00.83XA Contusion of other part of head, initial encounter (principal); I48.91 Unspecified atrial fibrillation; Z88.0 Allergy status to penicillin; Z88.2 Allergy status to sulfonamides; Z53.29 Procedure and treatment not carried out because of patient's decision for other reasons; W18.30XA Fall on same level, unspecified, initial encounter
CPT/HCPCS: 93005; 80053; 83735; 84484; 85025; 85610; 85730; 71046; 99285; 96365; 96375; 96376; J3475; 36415

== ENCOUNTER → 2025-01-23 | Outpatient (CLI) | payer MEDICARE ==
--- NOTE | 2025-01-23 14:04 | XR ---
EXAMINATION TYPE: XR facial bones complete DATE OF EXAM: 01/23/2025 1:47 PM COMPARISON: None CLINICAL INDICATION: Female, 84 years old with history of S09.92XA UNSPECIFIED INJURY OF NOSE, INITIA L ENCOU; PHH, pain TECHNIQUE: Multiple views of the facial bones. Frontal, lateral and tilted frontal views. FINDINGS: Soft tissue swelling over the nose with deformity to the nasal bone. Dental work noted. IMPRESSION: Soft tissue swelling of the nose with possible underlying nasal bone fracture. CT is a more sensitive exam for evaluation for facial fractures. [facility], , 01/23/2025 2:02 PM
== END | disposition home or self-care (01) ==
LOC: RADXRMAIN 13:16
PROVIDERS: ATTEND Nurse Practitioner Family
DX: S09.92XA Unspecified injury of nose, initial encounter (principal)
CPT/HCPCS: 70150